=== PATIENT | male | born 1970 | race Caucasian/White ===

== ENCOUNTER 2020-09-09 02:57 | Outpatient (CLI) | payer BC, SELFPAY ==
[2020-09-09 12:28] LABS: HCT 40.4 % (40.0-50.0); HGB 13.1 g/dL (13.5-17.5); MCH 29.7 pg (27.0-33.0); MCHC 32.4 % (32.0-36.0); MCV 91.6 fL (80-95); MPV 9.7 fL (8.0-11.0); Platelet Count 303 10^3/uL (130-400); RBC 4.41 10^6/uL (4.36-5.78); RDW 12.8 % (11.8-14.1); WBC 5.77 10^3/uL (4.4-10.8)
[2020-09-09 13:18] LABS: Anion Gap 6.9 mmol/L (3-11); BUN 14 mg/dL (7-18); CO2 29.1 mmol/L (21.0-32.0); CREATININE 0.9 mg/dL (0.70-1.30); Calcium 8.7 mg/dL (8.5-10.1); Chloride 107 mmol/L (98-107); FREE T4 0.92 ng/dL (0.76-1.46); Glucose 109 mg/dL (74-106); Sodium 143 mmol/L (136-145); TSH 1.02 uIU/mL (0.36-3.74)
[2020-09-09 13:32] LABS: Calculated LDL 128 mg/dL (<100); Cholesterol 198 mg/dL (<200); HDL Cholesterol 56 mg/dL (40-60); Triglyceride 73 mg/dL (<150)
[2020-09-09 14:06] LABS: Hemoglobin A1C 5.9 % (<5.7)
[2020-09-12 13:55] LABS: Testosterone, Free 10.6 ng/dL (4.26-16.4); Testosterone, Total 391 ng/dL (240-950)
== END 2020-09-09 02:58 | disposition home or self-care (01) ==
LOC: LOS 02:58
PROVIDERS: PCP Nurse Practitioner Family; Visit Provider Nurse Practitioner Family
DX: I10 Essential (primary) hypertension (principal); R53.83 Other fatigue; R73.03 Prediabetes; E78.5 Hyperlipidemia, unspecified
CPT/HCPCS: 36415; 80048; 80061; 84402; 84403; 85027; 83036; 84439; 84443

== ENCOUNTER 2020-10-30 14:44 | Emergency (ER) | payer BC, SELFPAY ==
[2020-10-30] VITALS (30 sets, daily range): BP systolic 131–187; BP diastolic 73–160; PULSE 38–66; RESP 7–21; TEMP 36.7; O2SAT 96–100
--- NOTE | 2020-10-30 15:15 | RT.EKG_ITS ---
APPROVED REPORT Exam: Resting ECG Reason for Exam: chest pain Patient Location: E HR:46 bpm ECG Measurements Heart Rate 46 AXIS [place] 175 P 33 QRSd 102 QRS 16 QT 499 T 29 QTc 439 Conclusion Sinus bradycardia...rate< 60 ST elev, probable normal early repol pattern...ST elevation, age<55. Appears c/w benign early repol. No STEMI. No old EKG to compare. I have reviewed and interpreted ECG and agree with software generated interpretation.
--- NOTE | 2020-10-30 15:15 | DI.RAD_ITS ---
Exam(s) XR CHEST 2V PA LATERAL EXAM: XR CHEST 2V PA LATERAL CLINICAL HISTORY: chest apiin TECHNIQUE: 2D digital imaging was performed. COMPARISON: No exams were available for comparison FINDINGS: MEDIASTINUM: Normal. HEART: Normal. PULMONARY VASCULATURE: Normal. LUNGS: Clear. PLEURAL SPACE: No pleural effusion or pneumothorax. BONE:Normal. IMPRESSION: No acute pulmonary findings. DATA REPOSITORY: RADIATION DOSE DELIVERED:
[2020-10-30] MEDS: Aspirin 81 MG CHEW 324 MG CH (15:25)
[2020-10-30] MEDS: nitroGLYcerin 0.4 MG TAB SL (15:25)
--- NOTE | 2020-10-30 15:26 | ED.GENADUL_ITS ---
Discharge Plan Disposition Patient Disposition: HOME Condition: Stable Discharge Details Clinical Impression: Chest pain Primary Care Provider: S[facility] ED Provider: Carlotta Akhtar Home Meds and New Rx's Prescriptions: Continued cetirizine [Zyrtec] 10 mg tablet 10 mg PO DAILY RF: 0 garlic 1,000 mg capsule 1,000 mg PO QPC RF: 0 ascorbic acid (vitamin C) 1,000 mg tablet 1 g PO DAILY RF: 0 cholecalciferol (vitamin D3) 50 mcg (2,000 unit) capsule 50 mcg PO DAILY RF: 0 polyethylene glycol 3350 [Miralax] 17 gram/dose powder 17 g PO DAILY RF: 0 lisinopril 40 mg tablet 40 mg PO DAILY Qty: 90 RF: 4 Discharge Instructions Instructions: Chest Pain (ED) Additional Instructions: Please take a 81 mg chewable baby aspirin daily. An outpatient stress test was ordered they will call you to schedule that appointment. Follow up with primary care provider in 3-5 days. Return to ED sooner if any worsening nausea, chest tightness, dizziness, sweaty, or concerns. Increase oral fluids. Call and make an appointment with cardiology in the next 1 to 2 weeks. Referrals: Sapphire Florence NP [Primary Care Provider] - Sanjana Mcgee MD [ [facility] STAFF PHYSICIAN] - 2 weeks Frankie Barber MD [ CONSULTING PHYSICIAN] - 2 weeks Discharge Data Discharge Date/Time-TO BE ENTERED AT DEPARTURE: 10/30/20 18:50 Medical Decision Making <RAUL Pedroza - Last Filed: 10/31/20 19:48> Patient with heart score of 4, given aspirin, nitroglycerin did not alleviate patient's symptoms Blood pressure improved post Nitroglycerin administration, no change in pain patient may benefit from admission, will receive troponin at 2-hour heidi and admit patient agreeable care will be signed out to Carlotta Christensen at 1530 pending repeat troponin and EKG and chest x-ray Given EKG findings and heart score of 4, my recommendation would be for overnight admission Patient is noted to be bradycardic, patient states this is his baseline Differential Diagnosis Differential Diagnosis: Non-ST elevation VA, angina, hypertensive urgency, Medical Records Medical records reviewed: Yes I reviewed the patient's medical records. Lab Data Lab results reviewed: Yes I reviewed the patient's lab results. <Carlotta Akhtar - Last Filed: 10/30/20 19:52> Care assumed from provider (Olga CARTER) Discussed patient details and case and pending workup and disposition. Patient is hemodynamically stable, and alert and oriented. At this time pending repeat troponin and EKG at approximately 1730. Second troponin is within normal limits EKG is unchanged. I did discuss with patient and family at length regarding admission for observation and risks and benefits of being discharged home versus admission, at this time patient has declined admission and has opted to be discharged home with a outpatient stress test and cardiology referral. I did recommend patient take a daily chewable baby aspirin. I did discuss strict return instructions to return for any worsening chest tightness, diaphoresis, nausea, worsening dizziness or any concerns. Patient has a capacity to make medical decisions and family is aware and involved and they verbalized understanding. HPI <RAUL Pedroza - Last Filed: 10/31/20 19:48> General Mode of arrival: ambulatory . Date/Time Provider Initiated Documentation: 10/30/20 15:05 . Limitations to Documentation: no limitations . Information obtained by: patient . HPI Narrative: This 50-year-old male with history of prediabetes, hyperlipidemia, essential hypertension presents for chest pressure that started approximately 12:00 today. He denies any shortness of breath, diaphoresis, nausea. He states he checked his blood pressure because of the chest pressure and noted it was elevated over 170. States he called his doctor who instructed him to come to the emergency room. He states he had chest pressure before but not checked his blood pressure with it. He states he was at rest when the pain began. He denies any known exertional component. He denies any current shortness of breath. She denies any pleuritic chest pain, calf pain or swelling, recent flights, surgeries, long drives. He denies any history of asthma or COPD. He denies known history of early cardiac events in family members. He has not attempted any [id number] medication. He has been taking his medications as prescribed. He did not have a stress test in the past. He denies any illicit drug use. He describes the pain is pressure sensation . Related Data Home Medications Medication Instructions Recorded Confirmed ascorbic acid (vitamin C) 1,000 mg 1 g PO DAILY tab 03/20/20 10/30/20 tablet cetirizine 10 mg tablet 10 mg PO DAILY 03/20/20 10/30/20 cholecalciferol (vitamin D3) 50 50 mcg PO DAILY 03/20/20 10/30/20 mcg (2,000 unit) capsule garlic 1,000 mg capsule 1,000 mg PO QPC 03/20/20 10/30/20 lisinopril 40 mg tablet 40 mg PO DAILY #90 tab 03/20/20 10/30/20 polyethylene glycol 3350 17 17 g PO DAILY 03/20/20 10/30/20 gram/dose oral powder Previous Rx's Medication Instructions Recorded lisinopril 40 mg tablet 40 mg PO DAILY #90 tab 03/20/20 Allergies Allergy/AdvReac Type Severity Reaction Status Date / Time No Known Allergies Allergy Verified 10/30/20 14:52 General Stated Complaint: GenMedical ELIZABETH: 4 Review of Systems <RAUL Pedroza - Last Filed: 10/31/20 19:48> Narrative: Review of systems obtained x7 aside from where indicated in HPI PFSH <RAUL Pedroza - Last Filed: 10/31/20 19:48> Medical History Essential hypertension Hyperlipidemia Irritable bowel syndrome Obesity Prediabetes Surgical History H/O vasectomy Hx of hemorrhoidectomy S/P lumbar discectomy (~2004) Family History Mother , at 60 from COPD Depression COPD (chronic obstructive pulmonary disease) Father , at 52 from airplane crash No problems noted. Sister Diabetes Son No problems noted. Maternal Grandfather , 60's No problems noted. Maternal Grandmother , in her 70s Dementia Paternal Grandfather , at 67 from brain cancer Brain cancer Paternal Grandmother , 70's Heart disease Myocardial infarction Dementia Social History Smoking/Tobacco Use Status: Never Second Hand Exposure: Yes Smoking risk assessment performed?: Yes Alcohol Intake: current Alcohol Intake frequency: a few times a week Alcohol type: beer, wine and hard liquor Drug use: Daily Substance use type: marijuana Caregiver/Support person: No Household members: spouse, children and friend(s) Housing: house Communication Needs: None Do you need help understanding health information?: Never Pets and animals: Yes Pets and animals: cat(s), dog(s) and farm animals Sexually active: Yes Do you think of yourself as: straight/heterosexual Current gender identity: male What is your relationship status?: How often do you talk on the phone with friends or family?: never How often do you get together with friends or relatives?: never Do you belong to any clubs or organized social groups?: no Panel score (0-1 are the most socially isolated patients): 1 What type of physical activity do you participate in: walking and weight lifting Duration: 30-45 minutes/day Frequency: 3-4 times per week Geetha/Pentecostalism: None Special geetha needs: No Water heater temp set <120 deg: Yes Working smoke detector in home: No Fire extinguisher in home: No Do you feel safe at home: Yes Do you feel safe in your relationship?: Yes Exam <RAUL Pedroza - Last Filed: 10/31/20 19:48> Const General: no acute distress Eyes Pupils: PERRL Chest Breast inspection: normal inspection of the breasts Resp Effort & Inspection: normal respiratory effort Auscultation: clear to auscultation bilaterally Cardio Rate: bradycardic Rhythm: regular rhythm GI Other: No abdominal bruit or pulsatile mass Skin General skin exam: no rashes or lesions noted Neuro General: patient alert and patient oriented x3 Extrem Other: Distal pulses intact all 4 extremities, no calf swelling or tenderness appreciated on exam Course <RAUL Pedroza - Last Filed: 10/31/20 19:48> Vital Signs Vital signs: Vital Signs Temperature 36.7 C 10/30/20 14:49 Pulse 55 L 10/30/20 14:49 Respiratory Rate 14 10/30/20 14:49 Blood Pressure 177/89 H 10/30/20 14:49 Pulse Oximetry 99 10/30/20 14:49 Temperature 36.7 C 10/30/20 14:49 Temperature Source Skin 10/30/20 14:49 Pulse 55 L 10/30/20 14:49 Respiratory Rate 14 10/30/20 14:49 Respiratory Effort Non-Labored 10/30/20 14:55 Respiratory Depth Normal 10/30/20 14:55 Respiratory Pattern Normal 10/30/20 14:55 Blood Pressure 177/89 H 10/30/20 14:49 Blood Pressure Position Supine 10/30/20 14:49 Pulse Oximetry 99 10/30/20 14:49 Oxygen Delivery Method Room Air 10/30/20 14:49 Oxygen Flow Rate 0 10/30/20 14:49 Pain Level 0 10/30/20 14:49 Sign Out <RAUL Pedroza - Last Filed: 10/31/20 19:48> Sign Out Data: Sign Out Comment: pending possible admission, repeat troponin, ekg at 1730 Last updated by Olga Avila PA at 10/30/20 17:01
[2020-10-30 15:42] LABS: Abs Immature Grans 0.01 10^3/uL (0.0-0.06); Absolute Basophil Count 0.05 10^3/uL (0.0-0.2); Absolute Eosinophil Count 0.12 10^3/uL (0.0-0.7); Absolute Lymphocyte Count 1.71 10^3/uL (1.2-3.4); Absolute Monocyte Count 0.43 10^3/uL (0.1-0.8); Absolute Neutrophil Count 5.21 10^3/uL (1.2-6.7); Basophils % 0.7; Eosinophils % 1.6; HGB 13.7 g/dL (13.5-17.5); Immature Grans % 0.1; Lymphocytes % 22.7; MCHC 32.6 % (32.0-36.0); MPV 9.3 fL (8.0-11.0); Monocytes % 5.7; Neutrophils % 69.2; Nucleated RBC 0 %; Platelet Count 298 10^3/uL (130-400); RBC 4.72 10^6/uL (4.36-5.78); RDW 13.3 % (11.8-14.1); RDW-SD 43.5 fL; WBC 7.53 10^3/uL (4.4-10.8)
[2020-10-30 15:55] LABS: ALT 36 U/L (16-63); AST 16 U/L (15-37); Albumin 4.2 g/dL (3.4-5.0); Alkaline Phosphatase 103 U/L (46-116); Anion Gap 10.7 mmol/L (3-11); BUN 9 mg/dL (7-18); Bilirubin, Total 0.7 mg/dL (0.2-1.0); CO2 27.3 mmol/L (21.0-32.0); CREATININE 0.9 mg/dL (0.70-1.30); Chloride 106 mmol/L (98-107); Glucose 91 mg/dL (74-106); Potassium 3.8 mmol/L (3.5-5.1); Sodium 144 mmol/L (136-145); Troponin I < 0.05 ng/mL (<0.06)
--- NOTE | 2020-10-30 16:30 | RT.EKG_ITS ---
APPROVED REPORT Exam: Resting ECG Reason for Exam: chest pain Patient Location: E HR:46 bpm ECG Measurements Heart Rate 46 AXIS [place] 172 P 27 QRSd 102 QRS 14 QT 514 T 27 QTc 447 Conclusion Bradycardia with irregular rate...V-rate 41- 53, mean < 60 ST elev, probable normal early repol pattern...ST elevation, age<55. Appears c/w benign early repol. T wave inversion in lead III slighly more pronounced than previous. I have reviewed and interpreted ECG and agree with software generated interpretation. No STEMI.
--- NOTE | 2020-10-30 17:15 | DI.VRAD_ITS ---
PROCEDURE INFORMATION: Exam: XR Chest Exam date and time: 10/30/2020 3:24 PM Age: 50 years old Clinical indication: Other: Chest pain; Additional info: Chest pain, high blood pressure TECHNIQUE: Imaging protocol: XR of the chest. Views: 2 views. COMPARISON: No relevant prior studies available. FINDINGS: Lungs: Unremarkable. No consolidation. Pleural spaces: Unremarkable. No pleural effusion. No pneumothorax. Heart/Mediastinum: Unremarkable. No cardiomegaly. Bones/joints: Unremarkable. IMPRESSION: No evidence for acute abnormality. Dictated and Authenticated by: Trini Townsend MD. Ordering:LANI Espinoza MD
--- NOTE | 2020-10-30 17:30 | RT.EKG_ITS ---
APPROVED REPORT Exam: Resting ECG Reason for Exam: high blood pressure Patient Location: E HR:42 bpm ECG Measurements Heart Rate 42 AXIS [place] 172 P 28 QRSd 103 QRS 8 QT 534 T 21 QTc 447 Conclusion Sinus bradycardia...rate< 60 ST elev, probable normal early repol pattern...ST elevation, age<55. No change in T wave inversion in III. Appears most likely early repol. No STEMI. I have reviewed and interpreted ECG and agree with software generated interpretation.
[2020-10-30 18:15] LABS: Troponin I < 0.05 ng/mL (<0.06)
--- NOTE | 2020-10-30 18:46 | NUR.NOTE ---
Nursing Note: Referral faxed to DI for a regular exercise stress test. Referral faxed to PCP [facility] for follow up in 3 to 5 days for chest pain. Referral faxed to [facility] for follow up within 1 week for chest pain. Ana Paula Santizo
== END 2020-10-30 18:50 | disposition home or self-care (01) ==
PROVIDERS: Physician Assistant; Emergency Provider Registered Nurse Emergency; PCP Nurse Practitioner Family
DX: R07.89 Other chest pain (principal); I10 Essential (primary) hypertension
CPT/HCPCS: 36415; 80053; 93005; 99285; 71046; 84484; 85025; 93010

== ENCOUNTER 2020-11-12 01:29 | Outpatient (CLI) | payer BC, SELFPAY ==
--- NOTE | 2020-11-10 08:34 | NUR.NOTE ---
Nursing Note: Pt arrived to diagnositic imaging for regular stress test. Resting supine BP 188/120, pt asymptomatic. Repeat BP supine 170/108. Unable to safely complete stress test with elevated resting BPs. Pt states he changed his normal evening routine last night and slept for only 2 hrs. Pt rescheduled for regular stress test 11/12. Encouraged pt to continue normal regimen for sleep, take medications as normal, and reviewed precautions. Pt voices understanding.
--- NOTE | 2020-11-12 09:00 | ETT_ITS ---
APPROVED REPORT Exam: Exercise Treadmill Patient Location: Out-Patient Room/Bed: Stress Nurse: Caro eHster RN Ordering Provider:KAIDEN AMAYA, Contact Number: [phone] BMI: 32.77 Baseline Rhythm: Sinus Rhythm Comment: Diffuse ST elevation leads I, aVL, V2, V3 Indications: Chest pain Medical History Medical History: Hypertension, hyperlipidemia, obesity, prediabetes Cardiac Medications: Lisinopril, garlic Allergies: NKA Cardiac Risk Factors: Hypertension, hyperlipidemia, obesity, prediabetes, family hx, exposure to 2nd hand smoke Previous Cardiac Procedures: None Pretest Chest Pain Characteristics: None Exercise History: Sedentary Physical Disabilities: None Lung Sounds: Clear to auscultation Heart Sounds: Regular Stress Test Details Test: Exercise stress testing was performed using a Sae protocol. Rest Stress HR Resting HR Supine: 63 bpm Max Heart Rate (APMHR): 171 bpm Resting HR Standin bpm Target HR (85% APMHR): 145 bpm Max HR Achieved: 164 bpm % of APMHR: 95 Recovery HR: 88 bpm HR response to stress: Normal HR response to stress BP Resting BP Supine: 166/90 mmHg Resting BP Standin/90 mmHg Max BP: 200/78 mmHg Recovery BP: 158/86 mmHg BP response to stress: Abnormal hypertensive response to stress. ECG Resting ECG: Sinus Rhythm Ectopy: None Comment: Minimal RACHEL in lateral leads Stress ECG: Sinus Tachycardia ST Change: No significant ST segment changes noted Arrhythmia: Frequent PVCs, couplets Comment: Increased ectopy toward end of exercise Recovery ECG: Sinus Rhythm Recovery ST Change: No significant ST segment changes noted Recovery Arrhythmia: Rare PVC, couplet Clinical Reason for Termination: General fatigue Stress Symptoms: General fatigue, chest tightness Exercise duration: 11 min58 sec Highest Stage Reached: Stage 4: 4.2 mph at 16% grade. Exercise capacity: 13.48 METs [place] Treadmill Score: 7 Rate Pressure Product: [id number] Stress ECG Conclusion 1. The patient exercised for 11 minutes and 58 seconds (13.5 METS). Exercise was stopped due to fati danilo. 2. The patient's blood pressure and heart rate augmented appropriately. 3. The patient had no EKG evidence of ischemia. He did develop frequent PVCs towards the end of exer cise and during recovery. [place] Treadmill Score is 7 which is Low risk.
== END 2020-11-12 01:49 ==
PROVIDERS: PCP Nurse Practitioner Family; Visit Provider Student in an Organized Health Care Education/Training Program
DX: R07.9 Chest pain, unspecified (principal); I10 Essential (primary) hypertension; E78.5 Hyperlipidemia, unspecified; E66.09 Other obesity due to excess calories; R73.03 Prediabetes; Z82.49 Family history of ischemic heart disease and other diseases of the circulatory system; Z77.22 Contact with and (suspected) exposure to environmental tobacco smoke (acute) (chronic)
CPT/HCPCS: 93017

== ENCOUNTER 2020-11-20 11:37 | Outpatient (RCR) | payer BC, SELFPAY ==
--- NOTE | 2020-11-20 11:30 | HOLTER_ITS ---
APPROVED REPORT Conclusion There is a 48-hour monitor ordered for indication of arrhythmia. Patient was in normal sinus rhythm with majority the recording with an average heart rate of 78 bpm. The patient had no episodes of ventricular tachycardia nor any episodes of supraventricular tachycard ia. There were 9 total premature beats. There were no episodes of atrial fibrillation, no pauses greater than 3 seconds and no evidence of hi gh degree heart block. There was 1 patient triggered event associated with 12 minutes of dizziness. There were no arrhythmi as recorded during this time.
== END 2020-11-28 23:59 | disposition home or self-care (01) ==
LOC: RT 11:37
PROVIDERS: PCP Nurse Practitioner Family; Visit Provider Internal Medicine Cardiovascular Disease
DX: I49.8 Other specified cardiac arrhythmias (principal)
CPT/HCPCS: 93225; 93226

== ENCOUNTER 2021-08-13 02:19 | Outpatient (CLI) | payer BC, SELFPAY ==
[2021-08-13 15:32] LABS: Abs Immature Grans 0.01 10^3/uL (0.0-0.06); Absolute Basophil Count 0.06 10^3/uL (0.0-0.2); Absolute Eosinophil Count 0.13 10^3/uL (0.0-0.7); Absolute Lymphocyte Count 1.78 10^3/uL (1.2-3.4); Absolute Monocyte Count 0.36 10^3/uL (0.1-0.8); Absolute Neutrophil Count 4.38 10^3/uL (1.2-6.7); Basophils % 0.9; Eosinophils % 1.9; HCT 40.8 % (40.0-50.0); HGB 13.4 g/dL (13.5-17.5); Immature Grans % 0.1; Lymphocytes % 26.5; MCH 29.8 pg (27.0-33.0); MCHC 32.8 % (32.0-36.0); MCV 90.7 fL (80-95); MPV 9.5 fL (8.0-11.0); Monocytes % 5.4; Neutrophils % 65.2; Platelet Count 296 10^3/uL (130-400); RDW 13.1 % (11.8-14.1); RDW-SD 43.2 fL; WBC 6.72 10^3/uL (4.4-10.8)
[2021-08-13 16:16] LABS: ALT 25 U/L (16-63); AST 18 U/L (15-37); Albumin 4.3 g/dL (3.4-5.0); Alkaline Phosphatase 77 U/L (46-116); Anion Gap 7.2 mmol/L (3-11); BUN 14 mg/dL (7-18); Bilirubin, Total 0.5 mg/dL (0.2-1.0); CO2 30.8 mmol/L (21.0-32.0); Chloride 103 mmol/L (98-107); Glucose 118 mg/dL (74-106); Potassium 3.7 mmol/L (3.5-5.1); Sodium 141 mmol/L (136-145); Total Protein 7.4 g/dL (6.4-8.2)
[2021-08-16 09:41] LABS: PSA, Screening 0.5 ng/mL (<=3.5)
== END 2021-08-13 02:20 | disposition home or self-care (01) ==
LOC: LBO 02:19
PROVIDERS: PCP Nurse Practitioner Family; Visit Provider Nurse Practitioner Family
DX: R63.4 Abnormal weight loss (principal); Z12.5 Encounter for screening for malignant neoplasm of prostate
CPT/HCPCS: 36415; 80053; 84153; 85025

== ENCOUNTER 2021-09-22 12:44 | Outpatient (CLI) | payer BC, SELFPAY ==
[2021-09-22 12:47] LABS: HCT 38.6 % (40.0-50.0); HGB 12.4 g/dL (13.5-17.5); MCH 29.4 pg (27.0-33.0); MCHC 32.1 % (32.0-36.0); MCV 92 fL (80-95); MPV 9.2 fL (8.0-11.0); Platelet Count 269 10^3/uL (130-400); RBC 4.22 10^6/uL (4.36-5.78); RDW 13.3 % (11.8-14.1); RDW-SD 45.1 fL; WBC 5.57 10^3/uL (4.4-10.8)
[2021-09-22 13:01] LABS: ALT 27 U/L (16-63); AST 16 U/L (15-37); Alkaline Phosphatase 88 U/L (46-116); Anion Gap 6.1 mmol/L (3-11); BUN 10 mg/dL (7-18); Bilirubin, Total 0.6 mg/dL (0.2-1.0); CO2 29.9 mmol/L (21.0-32.0); CREATININE 0.8 mg/dL (0.70-1.30); Calcium 8.9 mg/dL (8.5-10.1); Chloride 105 mmol/L (98-107); Glucose 103 mg/dL (74-106); Potassium 3.6 mmol/L (3.5-5.1); Sodium 141 mmol/L (136-145); Total Protein 7.5 g/dL (6.4-8.2)
== END 2021-09-22 12:45 | disposition home or self-care (01) ==
PROVIDERS: PCP Nurse Practitioner Family; Visit Provider Nurse Practitioner Family
DX: E86.0 Dehydration (principal); R63.4 Abnormal weight loss
CPT/HCPCS: 36415; 80053; 85027

== ENCOUNTER 2021-11-12 08:57 | Day surgery (SDC) | payer BC, SELFPAY ==
--- NOTE | 2021-11-11 18:43 | COLE_ITS ---
Colonoscopy Report Date of procedure: 11/12/21 Pre-op diagnosis general: CRC screening Post-op diagnosis procedure note: other (Polyp and right-sided diverticula) Surgeon: Monique Maravilla Anesthesia Type: General:No Airway Complications: None Disposition: same day Prep: Miralax/Dulcolax Retraction Time: 15 Procedure Description: After informed consent was obtained the patient was taken to the procedure room and placed in a left decubitous position. Monitors were applied and a time out was done. The patients name, date of , procedure, allergies to medications and metal in their body was reviewed. The patient was then sedated. Once sedated and comfortable a rectal exam was done. External exam was normal. In ternal exam revealed a normal sphincter tone and no palpable masses. The scope was then introduced and retrofelexed. Patient had a previous stapled hemorrhoidectomy. Postsurgical changes noted. No internal hemorrhoids were identified. The scope was then advanced to the cecum without difficulty. The TI and appendiceal orifice were identified. The prep was BB PS 3 in all segments for total of 9. The scope was then slowly retracted over 15 minutes back into the rectum. 0.75 cm polyps were removed at 35 cm with a cold snare. All specimen is retrieved and no bleeding is noted. He does have right-sided diverticula and a few small scattered sigmoid diverticula. There is no signs of active bleeding or infection the scope was removed and the patient was woken up and taken back to Same day surgery in stable condition. The patient tolerated the procedure well and there were no immediate complications. Follow up: The patient should follow up in ~ 7 years unless they develop changes in bowel habits or other new gastrointestinal complaints.
--- NOTE | 2021-11-11 18:45 | PDOC.DSDIS_ITS ---
Discharge Plan Disposition Patient Disposition: HOME Condition: Good Discharge Details Reason For Visit: colon scope Attending Provider: Monique Maravilla Primary Care Provider: Calin Cummings Home Meds and New Rx's Prescriptions: Continued garlic 1,000 mg capsule 1,000 mg PO QPC cholecalciferol (vitamin D3) 50 mcg (2,000 unit) capsule 50 mcg PO DAILY polyethylene glycol 3350 [Miralax] 17 gram/dose powder 17 g PO DAILY lisinopril 40 mg tablet 40 mg PO .nightly Qty: 90 4RF hydrochlorothiazide 12.5 mg tablet 12.5 mg PO DAILY Qty: 90 3RF aspirin 81 mg tablet,chewable 81 mg PO DAILY Discontinued bisacodyl [Dulcolax (bisacodyl)] 5 mg tablet,delayed release (DR/EC) 5 mg PO ONCE Qty: 4 0RF Rx Instructions: Take according to provider's instructions for colonoscopy prep. polyethylene glycol 3350 17 gram/dose powder 17 g PO ONCE Qty: 238 0RF Rx Instructions: To be taken as directed by prescriber's office for colonoscopy prep. Discharge Instructions Additional Instructions: DSU Colonoscopy Post- Op Instructions Instructions for Everyone who is given Anesthesia: For your safety, please do the following for the next twenty-four (24) hours: *Do Not operate a motor vehicle (car, truck, motorcycle, etc.) *Do Not drink alcoholic beverages or use any recreational drugs for the first 24 hours or while taking pain medications. The medications in your body may have a reaction that can be dangerous. *Do Not make any important decisions or sign any important papers. Findings: small polyp right sided diverticula Follow up: My office will send a letter in 2 to 3 weeks time detailing as to what type of polyp it was and when we want you to repeat the colonoscopy, probably 7 years time. 1. No lifting over 20 pounds or strenuous activity for the first 24 hours after your procedure. After 24 hours there are no restrictions on your activity but you may feel fatigued for a few days. 2. After you arrive home you may have a light meal and return to your normal diet as you can tolerate it without feeling sick to your stomach. 3. You may have a bloated, gaseous feeling in your belly (abdomen) after a colonoscopy. Passing gas and belching will help. Walking or lying down on your left side with your knees flexed may relieve the discomfort. Call the office at [phone] (Office) or [phone] (Hospital) right away if you notice any of the following: a.Vomiting of blood or ?coffee ground stools?. b.Rectal bleeding 1Tbsp, blood clots or continuous bleeding. c.Severe belly (abdominal) pain. d.A hard distended belly (abdomen) and an inability to pass gas. 4. Please don?t expect to have a normal BM (bowel movement) for 2-3 days after your procedure. 5. If there are questions regarding the findings of your procedure, please contact your doctor 6. If you are unable to contact your doctor with a problem, contact the hospital at [phone]. 7. Continue all your regular medications unless directed otherwise. I understand the above instructions and have no questions. Signature of Patient or Adult Escort Name of Responsible Adult Escort Signature of Nurse Date/Time Activity:: See above Diet:: See above Discharge Orders Discharge Orders: Discharge Order (Routine); Ordered 11/11/21 Ordered By: Monique Maravilla DS: Diagnosis Discharge Diagnosis (1) Diverticula of colon: Status: Acute (2) Adenomatous colon polyp: Status: Acute
[2021-11-12 09:16] VITALS: BP 119/77; PULSE 63; RESP 16; TEMP 36.5; O2SAT 100
[2021-11-12] MEDS: Lactated Ringers 1,000 ML 80 ML IV (09:29)
--- NOTE | 2021-11-12 10:22 | W.ANESPRE ---
General Info Date of Service Date Performed: 11/12/21 Height: 5 ft 11 in Weight: 88.224 kg Body Mass Index (BMI): 27.1 Surgical Procedure: Operation Date: 11/12/21 09:50 Proposed Procedure Side Surgeon toma Maravilla, DO Meds Allergies and Home Medications Allergies Allergy/AdvReac Type Severity Reaction Status Date / Time No Known Allergies Allergy Verified 11/11/21 13:58 Home Medication Medication Instructions Recorded cholecalciferol (vitamin D3) 50 50 mcg PO DAILY 03/20/20 mcg (2,000 unit) capsule garlic 1,000 mg capsule 1,000 mg PO QPC 03/20/20 polyethylene glycol 3350 17 17 g PO DAILY 03/20/20 gram/dose oral powder (Miralax) aspirin 81 mg chewable tablet 81 mg PO DAILY 11/05/20 hydrochlorothiazide 12.5 mg tablet 12.5 mg PO DAILY #90 tabs 11/20/20 lisinopril 40 mg tablet 40 mg PO .nightly #90 tabs 11/20/20 bisacodyl 5 mg tablet,delayed 5 mg PO ONCE #4 tabs 10/28/21 release (Dulcolax (bisacodyl)) polyethylene glycol 3350 17 17 g PO ONCE #238 grams 10/28/21 gram/dose oral powder Current Visit Medications: Current Medications Generic Name Dose Route Start Last Admin Trade Name Freq PRN Reason Stop Dose Admin Hyoscyamine Sulfate 0.125 mg 11/11/21 18:43 Hyoscyamine 0.125 Mg Sl/Oral/Chew SL DIRECTED PRN Ringer's Solution 1,000 mls @ 80 mls/hr 11/12/21 06:00 11/12/21 09:29 IV 12/11/21 23:59 80 mls/hr INFUSION XOCHITL Administration IV Miscellaneous Supplies 1 each 11/12/21 06:00 Iv Access IV 12/11/21 23:59 DIRECTED XOCHITL Ondansetron HCl 4 mg 11/11/21 18:43 Ondansetron 4 Mg/2 Ml Vial IVP Q4H PRN PRN Nausea / Vomiting Sodium Chloride 0 ml 11/12/21 06:00 Normal Saline Flush 10 Ml Syr IV 12/11/21 23:59 PRN PRN Sodium Chloride 0 ml 11/12/21 06:00 Normal Saline 10 Ml Vial IJ 12/11/21 23:59 DIRECTED PRN Sterile Water 0 ml 11/12/21 06:00 Water,Injection,Sterile 10 Ml Vial IJ 12/11/21 23:59 DIRECTED PRN PFSH Active Problems Active Problems: Problem Status Onset Code Unintentional weight loss R63.4 Screening for colon cancer Z12.11 Medical History Medical History Essential hypertension Hyperlipidemia Impairment of speech discrimination Irritable bowel syndrome Prediabetes Sensorineural hearing loss, unilateral, right ear, with unrestricted hearing on the contralateral side Surgical History Surgical History (Updated 11/12/21 @ 09:15 by Arlette De Paz RN) H/O vasectomy History of colonoscopy Hx of hemorrhoidectomy S/P lumbar discectomy (~2004) Tobacco Smoking/Tobacco Use Status: Never Passive smoking exposure: Yes Second hand exposure: Yes Alcohol Alcohol Intake: current Alcohol intake frequency: a few times a month Alcohol type: beer, wine and hard liquor Substance Use Substance use: Occasionally Substance use type: marijuana Vital Signs and Lab Results Vital Signs Most Recent Vital Signs in EMR: Most Recent Vital Signs Temp Pulse Resp BP Pulse Ox 36.5 C 63 16 119/77 100 11/12/21 09:16 11/12/21 09:16 11/12/21 09:16 11/12/21 09:16 11/12/21 09:16 Lab Results Blood Type / Crossmatch: No Data to Display Complete Blood Count: No Data to Display Complete Metabolic Panel: No Data to Display Liver Function Panel: No Data to Display Coagulation Panel: No Data to Display Cardiac Panel: No Data to Display Arterial Blood Gas: No Data to Display Venous Blood Gas: No Data to Display Pancreas Panel: No Data to Display Thyroid Panel: No Data to Display Infectious Disease: No Data to Display Blood Cultures: No Data to Display Toxicology Panel: No Data to Display Imaging and Studies Imaging and Studies Study information below may be from another EMR and interpreted by another provider. Please see original notes in EMR for more complete details. EKG Summary: Conclusion Sinus bradycardia...rate< 60 ST elev, probable normal early repol pattern...ST elevation, age<55. No change in T wave inversion in III. Appears most likely early repol. No STEMI. 10/30/20 Stress Test Summary: Stress ECG Conclusion 1. The patient exercised for 11 minutes and 58 seconds (13.5 METS). Exercise was stopped due to fatigue. 2. The patient's blood pressure and heart rate augmented appropriately. 3. The patient had no EKG evidence of ischemia. He did develop frequent PVCs towards the end of exercise and during recovery. Aguillon Treadmill Score is 7 which is Low risk. 11/12/20 Anesthesia Assessment and Plan Anesthesia History Personal History: No History of Anesthesia Complications Family History: No Family History of Anesthesia Complications Exercise Tolerance Exercise Tolerance: Metabolic Equivalents>4 Pertinent Negatives Pertinent Negatives: No Major Cardiovascular Symptoms or Complaints, No Major Pulmonary Symptoms or Complaints and No History of CVA/TIA Cardiac & Pulmonary Exam Cardiac Exam: Normal S1/S2 Heart Sounds Pulmonary Exam: Clear Bilateral Breath Sounds Implantable Cardiac Device Does patient have a Pacemaker or an ICD?: No Airway Exam Known Difficult Airway: No Mallampati Class: 1 Mouth Opening: Normal (> 3cm) Thyromental Distance: Greater than 3 cm Neck Range of Motion: Full ROM Neck Circumference: Normal Teeth Condition: Normal Dentition ASA Classification ASA Score: ASA 2 Emergency Case?: No NPO Status NPO Status: NPO Clears >2 hours, Solids >8 hours Anesthesia Plan Resuscitation Status: Full Code Anesthesia Technique: General Anesthesia Airway Planned: Natural Airway Monitors Used: Standard Monitors
[2021-11-12 10:47] VITALS: BMI 27.1
--- NOTE | 2021-11-12 11:15 | BOWEL_PTH ---
PATIENT: Brennan Mendoza LOC: [facility] U#:[id number] AGE/SX: 51/M ROOM: RE11/12/[address]: Monique Maravilla : 1970 BED: DIS: 11/12/2021 SPEC #: [id number] RECD: 11/12/21 12:48 STATUS: ALESSANDRA REQ #: [id number] SHANNAN: 11/12/21 11:[address]: Monique Maravilla DEPT: Surgical Specimen RECD BY: Olga Arceo ENTERED: 11/12/21 12:49 SP TYPE: Bowel OTHR DR: Calin Cummings, LILIANA Tissues: 1 - BIOPSY BOWEL Procedures: GROSS AND MICRO LEVEL 4 Comments: [id number]
[2021-11-12 11:56] VITALS: BP 115/78; PULSE 62; RESP 16; TEMP 36.5; O2SAT 99
[2021-11-12 12:19] VITALS: BP 113/81; PULSE 55; RESP 18; TEMP 36.5; O2SAT 100
--- NOTE | 2021-11-12 12:29 | W.ANESPOSTOP ---
Postoperative Evaluation Date, Time and Location Date Performed: 11/12/21 Time Performed: 12:19 Patient Location: Day Surgery Unit Vital Signs Most Recent Imported Vital Signs: Most Recent Vital Signs Temp Pulse Resp BP Pulse Ox 36.5 C 55 L 18 113/81 100 11/12/21 12:19 11/12/21 12:19 11/12/21 12:19 11/12/21 12:19 11/12/21 12:19 Pain Score Most Recent Pain Score: Most Recent Pain Score Pain Level 0 11/12/21 12:19 Assessment Mental Status: Awake (Alert & Oriented to Patient Baseline) Airway and Respiratory Function: Patent airway with normal (patient baseline) respiratory exam Cardiovascular Function: Hemodynamically Stable Hydration Status: Adequately Hydrated Nausea & Vomiting: No Nausea or Vomiting Pain: Pt. Denies Any Pain Peripheral Nerve Block: Patient did not receive a nerve block
== END 2021-11-12 12:44 | disposition home or self-care (01) ==
PROVIDERS: PCP Nurse Practitioner Family; Visit Provider Surgery
PROC: 0DJD8ZZ Inspection of Lower Intestinal Tract, Via Natural or Artificial Opening Endoscopic (ICD-10-PCS; CPT 45378; principal; 2021-11-12 09:45)
DX: Z12.11 Encounter for screening for malignant neoplasm of colon (principal); K63.5 Polyp of colon; K57.30 Diverticulosis of large intestine without perforation or abscess without bleeding; K63.89 Other specified diseases of intestine
CPT/HCPCS: 45385; 88305; J2704

== ENCOUNTER 2022-02-28 18:55 | Outpatient (CLI) | payer BC, SELFPAY ==
[2022-02-28 17:16] LABS: CREATININE 0.8 mg/dL (0.70-1.30); Estimated GFR 107.15 (mL/min/1.73m2)
== END 2022-02-28 18:56 | disposition home or self-care (01) ==
LOC: LBO 18:57
PROVIDERS: PCP Student in an Organized Health Care Education/Training Program; Visit Provider Otolaryngology
DX: R42 Dizziness and giddiness (principal); H90.41 Sensorineural hearing loss, unilateral, right ear, with unrestricted hearing on the contralateral side; Z01.812 Encounter for preprocedural laboratory examination
CPT/HCPCS: 36415; 82565

== ENCOUNTER → 2022-03-16 02:21 | Outpatient (CLI) | payer BC, SELFPAY ==
--- NOTE | 2022-03-16 07:30 | DI.MRI_ITS ---
Exam(s) MR IAC BRAIN WO/W EXAM: MR IAC BRAIN WO/W CLINICAL HISTORY: new onset dizziness with hx of R SNHL,H90.41,R42. TECHNIQUE: Multiplanar multisequence MRI of the brain and internal auditory canals was performed. CONTRAST MATERIAL: IV Contrast: mL of Magnevist contrast administered. COMPARISON: No exams were available for comparison FINDINGS: VENTRICLES AND EXTRA AXIAL SPACES: Normal in size and morphology for the patient's age. HEMORRHAGE: None. CEREBRAL PARENCHYMA: No focus of restricted diffusion to suggest acute infarct. No space-occupying le rajiv identified. MIDLINE SHIFT: None. BRAINSTEM/CEREBELLUM: Normal. CALVARIUM: Normal. ENHANCEMENT: No suspicious enhancement identified. VISUALIZED PARANASAL SINUSES/MASTOIDS: Mucous retention left maxillary sinus. IAC/CP ANGLE: The internal auditory canals are within normal limits. The cerebellar pontine angles ar e unremarkable. No enhancing lesions are seen. Visualized portion of the 7th and 8th nerves appear no rmal. OTHER FINDINGS: None. IMPRESSION: Unremarkable MRI of the brain and internal auditory canals. DATA REPOSITORY:
[2022-03-16] MEDS: Normal Saline - Diluent 50 ML VIAL 25 ML IJ (13:52)
[2022-03-16] MEDS: Gadoterate meglumine 20 ML VIAL 19 ML IVP (13:53)
== END ==
PROVIDERS: PCP Student in an Organized Health Care Education/Training Program; Visit Provider Otolaryngology
DX: H90.41 Sensorineural hearing loss, unilateral, right ear, with unrestricted hearing on the contralateral side (principal); R42 Dizziness and giddiness
CPT/HCPCS: 70553

== ENCOUNTER 2022-04-19 02:11 | Outpatient (CLI) | payer BC, SELFPAY ==
[2022-04-19 12:35] LABS: Abs Immature Grans 0.02 10^3/uL (0.0-0.06); Absolute Basophil Count 0.07 10^3/uL (0.0-0.2); Absolute Eosinophil Count 0.19 10^3/uL (0.0-0.7); Absolute Monocyte Count 0.33 10^3/uL (0.1-0.8); Absolute Neutrophil Count 1.96 10^3/uL (1.2-6.7); Basophils % 1.6; Eosinophils % 4.3; HCT 42.1 % (40.0-50.0); HGB 13.7 g/dL (13.5-17.5); Immature Grans % 0.4; Lymphocytes % 42.5; MCH 29.3 pg (27.0-33.0); MCHC 32.5 % (32.0-36.0); MCV 90 fL (80-95); MPV 9.3 fL (8.0-11.0); Monocytes % 7.4; Neutrophils % 43.8; Platelet Count 288 10^3/uL (130-400); RBC 4.68 10^6/uL (4.36-5.78); WBC 4.47 10^3/uL (4.4-10.8)
[2022-04-19 12:53] LABS: Iron 133 ug/dL (65-175); Total Iron Binding Capacity 283 ug/dL (250-450); Transferrin Sat 47 % (20-55)
[2022-04-19 13:12] LABS: ALT 22 U/L (16-63); AST 28 U/L (15-37); Albumin 4.1 g/dL (3.4-5.0); Alkaline Phosphatase 65 U/L (46-116); Anion Gap 3.5 mmol/L (3-11); BUN 13 mg/dL (7-18); Bilirubin, Total 0.6 mg/dL (0.2-1.0); CO2 32.5 mmol/L (21.0-32.0); CREATININE 0.8 mg/dL (0.70-1.30); Chloride 104 mmol/L (98-107); Estimated GFR 107.15 (mL/min/1.73m2); Ferritin 160 ng/mL (26-388); Glucose 109 mg/dL (74-106); Potassium 4.6 mmol/L (3.5-5.1); Sodium 140 mmol/L (136-145); Total Protein 7.9 g/dL (6.4-8.2)
[2022-04-19 13:23] LABS: Lipase 91 U/L (73-393)
== END 2022-04-19 02:12 | disposition home or self-care (01) ==
LOC: LOS 02:11
PROVIDERS: PCP Student in an Organized Health Care Education/Training Program; Visit Provider Student in an Organized Health Care Education/Training Program
DX: D64.9 Anemia, unspecified (principal); K58.9 Irritable bowel syndrome, unspecified; Z87.19 Personal history of other diseases of the digestive system; R10.12 Left upper quadrant pain; Z91.89 Other specified personal risk factors, not elsewhere classified
CPT/HCPCS: 36415; 80053; 83690; 82728; 83540; 83550; 85025

== ENCOUNTER 2022-08-04 03:41 | Outpatient (CLI) | payer BC, SELFPAY ==
[2022-08-04 08:37] LABS: Anion Gap 4.6 mmol/L (3-11); BUN 17 mg/dL (7-18); CO2 30.4 mmol/L (21.0-32.0); CREATININE 0.9 mg/dL (0.70-1.30); Calcium 8.8 mg/dL (8.5-10.1); Chloride 107 mmol/L (98-107); Glucose 117 mg/dL (74-106); Potassium 4.1 mmol/L (3.5-5.1); Sodium 142 mmol/L (136-145); TSH (W/Ref FT4) 0.91 uIU/mL (0.36-3.74)
== END 2022-08-04 03:42 | disposition home or self-care (01) ==
PROVIDERS: PCP Student in an Organized Health Care Education/Training Program; Visit Provider Student in an Organized Health Care Education/Training Program
DX: R73.03 Prediabetes; I10 Essential (primary) hypertension; R79.89 Other specified abnormal findings of blood chemistry; G47.8 Other sleep disorders
CPT/HCPCS: 36415; 80048; 84443

== ENCOUNTER 2022-09-07 02:22 | Outpatient (CLI) | payer BC, SELFPAY ==
[2022-09-07 09:41] LABS: Abs Immature Grans 0.01 10^3/uL (0.0-0.06); Absolute Basophil Count 0.07 10^3/uL (0.0-0.2); Absolute Eosinophil Count 0.11 10^3/uL (0.0-0.7); Absolute Lymphocyte Count 1.23 10^3/uL (1.2-3.4); Absolute Monocyte Count 0.42 10^3/uL (0.1-0.8); Absolute Neutrophil Count 4.28 10^3/uL (1.2-6.7); Basophils % 1.1; Eosinophils % 1.8; HGB 13.3 g/dL (13.5-17.5); Immature Grans % 0.2; Lymphocytes % 20.1; MCH 29.4 pg (27.0-33.0); MCHC 33.3 % (32.0-36.0); MCV 89 fL (80-95); Monocytes % 6.9; Neutrophils % 69.9; Platelet Count 267 10^3/uL (130-400); RBC 4.52 10^6/uL (4.36-5.78); RDW-SD 42.5 fL; WBC 6.12 10^3/uL (4.4-10.8)
[2022-09-07 10:17] LABS: Hemoglobin A1C 5.7 % (<5.7)
[2022-09-07 10:33] LABS: Folate 16.7 ng/mL (8.6-20.0)
[2022-09-07 10:36] LABS: Calculated LDL 112 mg/dL (<100); Cholesterol 192 mg/dL (<200); HDL Cholesterol 73 mg/dL (40-60); TSH (W/Ref FT4) 1.03 uIU/mL (0.36-3.74); Triglyceride 39 mg/dL (<150); Vitamin B12 394 pg/mL (193-986)
[2022-09-07 10:53] LABS: Creatine Kinase 178 U/L (39-308)
[2022-09-07 18:11] LABS: T3,Free 4.8 pg/mL (2.8-5.3)
[2022-09-08 10:10] LABS: Lyme Ab w Rflx to Lyme Confirm Negative (Negative)
[2022-09-08 10:34] LABS: HBs Antibody, Qual Negative (See Note); HBs Antibody, Quant <3.1 mIU/mL (See Note); Hepatitis B Core Antibody Negative (Negative); Hepatitis B surface Ag Negative (Negative); Hepatitis C Ab w Rflx HCV PCR Negative (Negative)
[2022-09-10 01:33] LABS: Anaplasma phagocytophilum Negative (Negative); B. miyamotoi PCR Negative (Negative); Babesia divergens/MO-1 Negative (Negative); Babesia duncani Negative (Negative); Babesia microti Negative (Negative); Ehrlichia chaffeensis Negative (Negative); Ehrlichia ewingii/canis Negative (Negative); Ehrlichia muris eauclairensis Negative (Negative)
[2022-09-11 14:10] LABS: Testosterone, Total 461 ng/dL (240-950)
[2022-09-15 19:47] LABS: AM Cortisol 10 mcg/dL (5-25)
== END 2022-09-07 02:23 | disposition home or self-care (01) ==
PROVIDERS: PCP Student in an Organized Health Care Education/Training Program; Visit Provider Student in an Organized Health Care Education/Training Program
DX: D64.9 Anemia, unspecified (principal); R52 Pain, unspecified; W57.XXXA Bitten or stung by nonvenomous insect and other nonvenomous arthropods, initial encounter; I10 Essential (primary) hypertension; M79.10 Myalgia, unspecified site; R07.89 Other chest pain; R63.4 Abnormal weight loss; Z13.220 Encounter for screening for lipoid disorders; R73.09 Other abnormal glucose
CPT/HCPCS: 36415; 80061; 82530; 82533; 82550; 83520; 84403; 86704; 86706; 86803; 87340; 87798; 82607; 82746; 83036; 84443; 84481; 85025; 86618

== ENCOUNTER 2022-09-19 00:57 | Outpatient (CLI) | payer BC, SELFPAY ==
--- NOTE | 2022-09-19 06:28 | ETT_ITS ---
APPROVED REPORT Exam: Exercise Treadmill Patient Location: Out-Patient Room/Bed: Stress Nurse: Vaishnavi Christensen RN Ordering Provider:AZIZASHALINI MCLAUGHLIN, Contact Number: [phone] BMI: 29.70 Baseline Rhythm: Sinus Bradycardia Indications: Atypical chest pain, fatigue, hypertension, dyspnea Medical History Medical History: Atypical chest pain, prediabtetes, anemia, fatigue, HTN, HLD, bruit of R carotid art sandip Cardiac Medications: Aspirin, HCTZ, lisinopril Allergies: Escitalopram Cardiac Risk Factors: Family hx, HTN, HLD Previous Cardiac Procedures: None Pretest Chest Pain Characteristics: None Exercise History: Physically active Physical Disabilities: None Lung Sounds: Clear to auscultation, diminished throughout Heart Sounds: Regular Stress Test Details Test: Exercise stress testing was performed using a Sae protocol. Rest Stress HR Resting HR Supine: 57 bpm Max Heart Rate (APMHR): 169 bpm Resting HR Standin bpm Target HR (85% APMHR): 144 bpm Max HR Achieved: 158 bpm % of APMHR: 93 Recovery HR: 72 bpm HR response to stress: Normal HR response to stress BP Resting BP Supine: 132/82 mmHg Resting BP Standin/82 mmHg Max BP: 222/72 mmHg Recovery BP: 132/84 mmHg BP response to stress: Abnormal hypertensive response to stress. ECG Resting ECG: Sinus Bradycardia Ectopy: None Stress ECG: Sinus Tachycardia ST Change: No significant ST segment changes noted Arrhythmia: None Recovery ECG: Sinus Rhythm Recovery ST Change: No significant ST segment changes noted Recovery Arrhythmia: None Clinical Reason for Termination: Dyspnea, Fatigue, Target HR Achieved Stress Symptoms: General Fatigue, Dyspnea Exercise duration: 10 min21 sec Highest Stage Reached: Stage 4: 4.2 mph at 16% grade. Exercise capacity: 12.38 METs Angina Score: None Aguillon Treadmill Score: 9.2 Rate Pressure Product: [id number] Stress ECG Conclusion 1. Resting electrocardiogram showed voltage for left ventricular hypertrophy 2. Patient exercised on the Sae protocol and completed a workload of 12.38 METS 3. Normal heart rate response to exercise. Patient achieved 93% of predicted heart rate for age. Mi ldly hypertensive blood pressure response to exercise 4. There was no electrocardiographic evidence of myocardial ischemia 5. There were no significant dysrhythmias Aguillon Treadmill Score is 9.2 which is Low risk. Stress Test Summary STAGE Time (mins) Speed (mph) Grade (%) HR BP SpO2 SYMPTOMS METS Supine 57 132/82 98 Standing 65 128/82 99 1 3 1.7 10 94 150/72 99 4.5 2 6 2.5 12 108 166/90 98 7 3 9 3.4 14 133 210/96 98 Mild Dyspnea 10 4 12 4.2 16 156 13 1 min recovery 118 222/72 98 Mild Dyspnea 3 min recovery 71 192/80 98 Dyspnea resolving 6 min recovery 72 132/84 98 Dyspnea resolved
== END 2022-09-19 01:17 ==
LOC: DI 00:57
PROVIDERS: PCP Student in an Organized Health Care Education/Training Program; Visit Provider Student in an Organized Health Care Education/Training Program
DX: D64.9 Anemia, unspecified (principal); I10 Essential (primary) hypertension; R06.09 Other forms of dyspnea; R07.89 Other chest pain; R53.83 Other fatigue; R63.4 Abnormal weight loss
CPT/HCPCS: 93017

== ENCOUNTER 2022-10-18 02:29 | Outpatient (CLI) | payer BC, SELFPAY ==
--- NOTE | 2022-10-18 15:00 | DI.US_ITS ---
APPROVED REPORT EXAM: Comprehensive 2D, Doppler, and color-flow Echocardiogram Patient Location: Out-Patient Cloth Desizing Range Tender: Anyi Stoner RDCS (AE) Indications: Evaluate heart function, EF, Atypical chest pain, Fatigue, Anemia, HTN, SORIANO Other Information Study Quality: Adequate Conclusion Normal left ventricular wall thickness and chamber size. Ejection fraction is 60%. Wall motion is n ormal Normal right ventricular size and systolic function Both atria are normal in size There is no structural or hemodynamically significant valvular disease Right ventricular systolic pressure is 21 mmHg Wall motion Left Ventricle The left ventricle is normal size. The left ventricular systolic function is normal. The left ventric ular ejection fraction is within the normal range. There is normal left ventricular wall thickness. T here is normal LV segmental wall motion. There is no ventricular septal defect visualized. LVEF is 60 %. Right Ventricle The right ventricle is normal size. The right ventricular systolic function is normal. The RVSP is 21 .1 mmHg. Atria The left atrium size is normal. The right atrium size is normal. The interatrial septum is intact wit h no evidence for an atrial septal defect. Aortic Valve The aortic valve is normal in structure. Aortic valve is trileaflet. There is no aortic valvular sten osis. No aortic regurgitation is present. Mitral Valve The mitral valve is normal in structure. No evidence of mitral valve stenosis. Trace mitral regurgita tion. Tricuspid Valve The tricuspid valve is normal in structure. There is no tricuspid valve stenosis. Trace tricuspid reg urgitation. Pulmonic Valve The pulmonary valve is normal in structure. There is no pulmonic valvular stenosis. There is no pulmo mei valvular regurgitation. Great Vessels The aortic root is normal in size. The ascending aorta is normal in size. Aortic arch is normal in ca liber. IVC is normal in size and collapses >50% with inspiration. Pericardium There is no pericardial effusion. 2D Dimensions IVSD d PLAX 1.10 cm M: 0.6-1.2 LV Vol A2C d MOD 139.9 mL LVPW d PLAX 1.12 cm M: 0.6 - 1.2 LV Vol A4C d MOD 158.8 mL LVID d PLAX 5.32 cm M: 4.2 - 5.8 LA vol/ BSA A2C s A-L 29.1 mL/m2 LVDs 3.55 cm M: 2.5 - 4.0 LA vol/ BSA A4C s A-L 30.9 mL/m2 Ao Root d 3.53 cm M: 3.1 - 3.7 LA Vol/ BSA Biplane s A-L 31.3 mL/m2 RA Area A4C 18.25 cm2 LA Area A4C s MOD 22.60 cm2 RA Vol/ BSA A4C s A-L 24.4 mL/m2 LA Area A2C s MOD 21.00 cm2 Ao Asc Diam d 3.38 cm M: 2.6 - 3.4 LV EF A4C MOD 58.9 % LV EF Teichholz 61.0 % LV EF A2C MOD 59.1 % LVEF (Mohr's) 59.00 % M: 52 - 72 LV EF Biplane MOD 59.0 % LV Volume 108.89 mL M: 62 - 150 SV 87.97 mL LV Volume Index 50.17 mL/m2 M: 34 - 74 SV Index 40.53 mL/m2 LV Vol Biplane MOD 149.1 mL FS 32.90 % M-Mode TAPSE 2.54 cm (M/F) >1.7 LV Diastology MV E' medial 0.103 (>0.07 m/s) E/A Ratio 1.1 LV E/e MED 7.20 (<14) MV E Vmax 0.74 (0.4-1.3 m/s) MV E' lateral 0.100 (>0.1 m/s) MV A Vmax 0.70 (0.4-1.3 m/s) LV E/e LAT 7.35 (<14) MV E/A Ratio 1.00 MV E/E' medial 7.22 MV E/E' lateral 7.40 Aortic Valve LVOT Area 3.65 cm2 AoV Area Vmax 2.96 cm2 LVOT Vmax 1.17 m/s AoV Area/ BSA (Vmax) 1.37 cm2/m2 LVOT Mean Mikal. 0.75 m/s LARA Mean Mikal. 2.83 cm2 LVOT Peak Grad 5.5 mmHg LARA Mean Mikal. Index 1.31 cm2/m2 LVOT Mean Grad 2.6 mmHg LVOT VTI 0.275 m LVOT Diam s 2.15 cm AoV Vmax 1.44 m/s Velocity Ratio 0.81 AoV Mean Mikal. 0.96 m/s AoV Peak Grad 8.3 mmHg LVOT SV 100.59 mL AoV Mean Grad 4.3 mmHg AoV VTI 0.290 m AoV Area VTI 3.47 cm2 AoV Area/ BSA (VTI) 1.60 cm/m2 Mitral Valve MV DT 224 (160-240 msec) MV PHT 65 msec MV Area PHT 3.39 cm2 MV VTI 0.243 m MV Area VTI 4.13 (4.0-6.0 cm2) Pulmonary Valve PV Vmax 1.05 (0.5-1.5 m/s) RVOT Peak Gr. 1.90 mmHg PV Peak Grad 4.4 mmHg RVOT Mean Gr. 1.10 mmHg PV Mean Grad 2.2 mmHg RVOT VTI 0.152 m PV VTI 0.215 m RVOT Vmax 0.69 m/s Tricuspid Valve TR Peak Grad 18.0 mmHg TR Vmax 2.13 m/s RA Pressure 3.00 mmHg RVSP (TR) 21.1 mmHg
== END 2022-10-18 02:49 ==
LOC: DI 02:30
PROVIDERS: PCP Student in an Organized Health Care Education/Training Program; Visit Provider Student in an Organized Health Care Education/Training Program
DX: D64.9 Anemia, unspecified (principal); I10 Essential (primary) hypertension; R06.09 Other forms of dyspnea; R07.89 Other chest pain; R53.83 Other fatigue; R63.4 Abnormal weight loss
CPT/HCPCS: 93306

== ENCOUNTER 2022-11-11 12:02 | Outpatient (CLI) | payer BC, SELFPAY ==
--- NOTE | 2022-11-11 10:53 | DI.RAD_ITS ---
Exam(s) XR KNEE LT 4V AP,LAT,DIMPLE,PAT EXAM: XR KNEE LT 4V AP,LAT,DIMPLE,PAT CLINICAL HISTORY: Lt knee pain, R52, evaluate joint. TECHNIQUE: 2D digital imaging was performed. COMPARISON: No exams were available for comparison FINDINGS: Four views. No evidence of fracture or obvious joint effusion. No obvious degenerative changes. There is a lilly gn traction spur at the insertion site of the patellar tendon just below the anterior tibial tubercle . Also traction spur noted at the insertion site of the quadriceps tendon on anterior-superior garsia la. No osseous lesions. Bone density normal. Benign bone island noted in the medial femoral condyle met aphysis. IMPRESSION: As above. DATA REPOSITORY: RADIATION DOSE DELIVERED:
== END 2022-11-11 12:22 ==
PROVIDERS: PCP Student in an Organized Health Care Education/Training Program; Visit Provider Student in an Organized Health Care Education/Training Program
DX: M25.562 Pain in left knee (principal)
CPT/HCPCS: 73564

== ENCOUNTER 2022-11-30 02:02 | Outpatient (CLI) | payer BC, SELFPAY ==
--- NOTE | 2022-11-30 07:00 | DI.MRI_ITS ---
Exam(s) MR LOWER EXTREMITY LT WO EXAM: MR LOWER EXTREMITY LT WO CLINICAL HISTORY: eval thigh pain/weakness,w/ burning = neuropathy, lt thigh pain, myalgia TECHNIQUE: Multiplanar multisequence MRI was performed. COMPARISON: CR XR KNEE LT 4V AP,LAT,DIMPLE,PAT from 11/11/2022 FINDINGS: MARROW:There is no evidence of fracture, bone contusion, nor difficult osseous lesions. A small lilly gn bone island is noted in the distal medial femoral metaphysis. Bone marrow signal in the femur is unremarkable. No lytic lesions. No bone edema. No evidence of bone infarct. MUSCLES: There is atrophy of the vastus intermedius component of the quadriceps muscle group. No josé miguel dence of acute tear nor intermuscular fluid. The vastus medialis and lateralis muscles as well as th e rectus femoris components of the quadriceps group appear unremarkable.There is no signal abnormalit y in the posterior musculature. TENDONS: There is increased signal in the distal quadriceps tendon at its attachment to the superior pole the patella but without a high-grade tear at this level. PARTIALLY INCLUDED/VISUALIZED KNEE: There is a small-moderate size knee joint effusion. The patellar tendon appears intact. There is significant thinning of the retropatellar cartilage, most prominent over the lateral facet. There is subarticular signal abnormality in this region in the posterior pa tella, both edema and what are either degenerative subarticular cysts or possible osteochondral defec ts. There are no patellar retinacular tears.. No obvious collateral ligament tears. No obvious men iscal tears, realizing the limitations of knee interpretation with this larger field of view. No bon e contusion evident in the femoral condyles and tibial plateau. No obvious cruciate ligament tears. OTHER: None. IMPRESSION: 1. Realizing the limitations of this study (large field of view to include the thigh) with respect to accurately studying the knee, there are significant findings in the patellofemoral compartment with respect to cartilage thinning and degenerative cysts or possible osteochondral defects related to the retropatellar cartilage. There is also signal abnormality in the distal quadriceps tendon consisten t with an element of tendinitis (there is no high-grade tear of the quadriceps). 2. There is significant atrophy evident in one of the 4 muscles of the anterior thigh which contribut e to the formation of the quadriceps so group, this being the vastus intermedius (which is directly a nterior to the femur). 3. There is no intraosseous signal evident in the femur, femoral condyles, tibial plateau nor in the partially included fibular head. No fractures, bone contusions, bone infarcts, nor significant osseo us lesions. 4. There is a knee joint effusion (small-moderate size), without evidence of obvious meniscal tears, cruciate ligament tears, nor collateral ligament tears, realizing the limitations for interpretation of internal knee structures with this type of field of view. If clinically indicated follow-up dedicated MRI scan of the knee can be performed for added sensitivi ty and specificity. DATA REPOSITORY:
== END 2022-11-30 02:22 ==
LOC: DI 02:02
PROVIDERS: PCP Student in an Organized Health Care Education/Training Program; Visit Provider Student in an Organized Health Care Education/Training Program
DX: M62.562 Muscle wasting and atrophy, not elsewhere classified, left lower leg (principal); M25.462 Effusion, left knee; M76.52 Patellar tendinitis, left knee
CPT/HCPCS: 73718

== ENCOUNTER 2023-02-10 05:30 | Outpatient (CLI) | payer BC, SELFPAY ==
[2023-02-10] MEDS: Albuterol HFA 18 GM 200 PUFF INH IH (17:22)
[2023-02-10] MEDS: Methacholine 100 MG VIAL IH (17:22)
[2023-02-10] MEDS: Inhaler, Assist Device 1 EACH MC (17:23)
--- NOTE | 2023-02-13 16:01 | PFT_ITS ---
Date of service: 02/10/23 Time of Service: 15:05 Pulmonary Function Test Result Indications: [facility] Interpretation Spirometry: No baseline airflow limitation. There was a 15% decline in FEV1 with administration of 16mg/mL methacholine Lung Volumes: There is air trapping. Diffusion Capacity: Normal diffusion Airway Pressure: Normal airways resistance Impression Normal pulmonary function with some air trapping and a negative methacholine challenge. Clinical Correlation therefore is recommended.
== END 2023-02-10 05:31 | disposition home or self-care (01) ==
LOC: RT 05:30
PROVIDERS: PCP Student in an Organized Health Care Education/Training Program; Visit Provider Student in an Organized Health Care Education/Training Program
DX: U09.9 Post COVID-19 condition, unspecified (principal)
CPT/HCPCS: 94060; 94070; 94726; 94729; 94010; J7674

== ENCOUNTER 2023-02-17 02:03 | Outpatient (CLI) | payer BC, SELFPAY ==
[2023-02-17 11:58] LABS: HGB 12.9 g/dL (13.5-17.5)
[2023-02-17 12:14] LABS: Anion Gap 6.4 mmol/L (3-11); BUN 14 mg/dL (7-18); C-Reactive Protein 0.06 mg/dL (0.0-0.3); CO2 29.6 mmol/L (21.0-32.0); CREATININE 0.8 mg/dL (0.70-1.30); Chloride 105 mmol/L (98-107); Estimated GFR 106.48 (mL/min/1.73m2); Glucose 98 mg/dL (74-106); Potassium 3.9 mmol/L (3.5-5.1); Sodium 141 mmol/L (136-145)
== END 2023-02-17 02:04 | disposition home or self-care (01) ==
PROVIDERS: PCP Student in an Organized Health Care Education/Training Program; Visit Provider Student in an Organized Health Care Education/Training Program
DX: D64.9 Anemia, unspecified (principal); G47.9 Sleep disorder, unspecified; I10 Essential (primary) hypertension; R73.03 Prediabetes; R79.89 Other specified abnormal findings of blood chemistry; R93.89 Abnormal findings on diagnostic imaging of other specified body structures; M79.652 Pain in left thigh; R59.9 Enlarged lymph nodes, unspecified
CPT/HCPCS: 36415; 80048; 85018; 86140

== ENCOUNTER → 2023-03-07 00:20 | Outpatient (CLI) | payer BC, SELFPAY ==
--- NOTE | 2023-03-07 06:30 | DI.RAD_ITS ---
Exam(s) XR FINGER RT INDEX EXAM: XR FINGER RT INDEX CLINICAL HISTORY: evaluate DIP for joint path, MUCOIS CYST (vs wart),m67.40. TECHNIQUE: 2D digital imaging was performed. COMPARISON: No exams were available for comparison FINDINGS: 3 views There is no evidence of fracture or dislocation. With respect of the DIP joint, there are mild-moderate degenerative changes. There is also a thin ca lcific density dorsal to the neck of the middle phalanx. At the level of the proximal interphalangeal joint there are no degenerative changes nor erosions. H owever, in the subcutaneous tissue over the lateral aspect of the index finger at this level there is a visible elevated bump which measures approximately 8 x 5 mm and this contains a subcutaneous calci fication measuring 4 x 3 mm. This is superficial and not in nor intimately related to the proximal i nterphalangeal joint. The metacarpophalangeal joint of the 2nd-index finger appears unremarkable. IMPRESSION: Degenerative changes in the DIP joint-mild/moderate. Subcutaneous benign-appearing calcium containing lesion on the lateral aspect of the 2nd-index finger approximately at PIP joint level, as described above. There appears to be visible pump at this leve l and most probably this is palpable. DATA REPOSITORY: RADIATION DOSE DELIVERED:
== END ==
PROVIDERS: PCP Student in an Organized Health Care Education/Training Program; Visit Provider Student in an Organized Health Care Education/Training Program
DX: M67.441 Ganglion, right hand (principal)
CPT/HCPCS: 73140

== ENCOUNTER → 2023-03-17 00:32 | Outpatient (CLI) | payer BC, SELFPAY ==
--- NOTE | 2023-03-17 06:45 | DI.MRI_ITS ---
Exam(s) MR LOWER JOINT LT WO EXAM: MR LOWER JOINT LT WO CLINICAL HISTORY: knee joint disorder,congenital anomaly patella,injury articular cartilage,. TECHNIQUE: Multiplanar multisequence MRI was performed. COMPARISON: CR XR KNEE LT 4V AP,LAT,DIMPLE,PAT from 11/11/2022 FINDINGS: BONES: There is no fracture or contusion pattern. JOINTS: There is marked loss of the articular cartilage in the lateral patella with underlying bone m arrow edema. The articular cartilage is otherwise well maintained. There is a small amount of fluid in the joint space. TENDONS: Extensor mechanism: Unremarkable. Medial retinaculum: Unremarkable. Lateral retinaculum: Unremarkable. Popliteus: Unremarkable. MUSCLES: Unremarkable. MENISCI: The medial meniscus is unremarkable. The lateral meniscus is unremarkable. SOFT TISSUES: Unremarkable. LIGAMENTS: Anterior Cruciate: The anterior cruciate ligament is intact. Posterior Cruciate: Unremarkable. Medial Collateral:Unremarkable. Lateral Collateral: Unremarkable. OTHER: IMPRESSION: 1. Loss of the articular cartilage and subchondral edema involving the lateral patellar femoral joint . This may be due to degenerative change or trauma. 2. No evidence of a meniscal or ligament tear. DATA REPOSITORY:
== END ==
PROVIDERS: PCP Student in an Organized Health Care Education/Training Program; Visit Provider Student in an Organized Health Care Education/Training Program
DX: M22.42 Chondromalacia patellae, left knee (principal); S89.82XA Other specified injuries of left lower leg, initial encounter; X58.XXXA Exposure to other specified factors, initial encounter
CPT/HCPCS: 73721

== ENCOUNTER 2023-04-18 02:26 | Outpatient (CLI) | payer BC, SELFPAY ==
[2023-04-18 07:40] LABS: HGB 12.6 g/dL (13.5-17.5)
[2023-04-18 08:12] LABS: Iron 73 ug/dL (65-175); Total Iron Binding Capacity 284 ug/dL (250-450); Transferrin Sat 26 % (20-55)
[2023-04-18 08:29] LABS: ALT 28 U/L (16-63); AST 15 U/L (15-37); Albumin 3.7 g/dL (3.4-5.0); Alkaline Phosphatase 75 U/L (46-116); Anion Gap 3.8 mmol/L (3-11); BUN 17 mg/dL (7-18); Bilirubin, Total 0.5 mg/dL (0.2-1.0); CO2 31.2 mmol/L (21.0-32.0); CREATININE 0.9 mg/dL (0.70-1.30); Calcium 8.6 mg/dL (8.5-10.1); Chloride 107 mmol/L (98-107); Estimated GFR 102.76 (mL/min/1.73m2); Ferritin 77 ng/mL (26-388); Glucose 108 mg/dL (74-106); Potassium 3.7 mmol/L (3.5-5.1); Sodium 142 mmol/L (136-145); TSH (W/Ref FT4) 0.86 uIU/mL (0.36-3.74)
[2023-04-19 20:03] LABS: Lab Add On Test DONE
[2023-04-19 20:32] LABS: Hemoglobin A1C 5.7 % (<5.7)
== END 2023-04-18 02:27 | disposition home or self-care (01) ==
LOC: LBO 02:27
PROVIDERS: Absent Provider Student in an Organized Health Care Education/Training Program; PCP Student in an Organized Health Care Education/Training Program; Referring Provider Student in an Organized Health Care Education/Training Program; Visit Provider Student in an Organized Health Care Education/Training Program
DX: M62.81 Muscle weakness (generalized); Z91.89 Other specified personal risk factors, not elsewhere classified; I10 Essential (primary) hypertension; K58.9 Irritable bowel syndrome, unspecified; K76.9 Liver disease, unspecified; R73.03 Prediabetes; R73.09 Other abnormal glucose
CPT/HCPCS: 36415; 80053; 82306; 82728; 83036; 83540; 83550; 84443; 85018

== ENCOUNTER 2023-09-05 05:58 | Day surgery (SDC) | payer BC, SELFPAY ==
[2023-09-05] VITALS (16 sets, daily range): BP systolic 116–185; BP diastolic 57–90; PULSE 59–86; RESP 13–21; TEMP 36.2–37.1; O2SAT 95–100; BMI 31.4
[2023-09-05] MEDS: Acetaminophen 500 MG TAB 1000 MG PO ×2 (06:34→14:44)
[2023-09-05] MEDS: Celecoxib 200 MG CAP 400 MG PO (06:34)
[2023-09-05] MEDS: Gabapentin 300 MG CAP PO (06:34)
[2023-09-05] MEDS: Lactated Ringers 1,000 ML 80 ML IV (06:50)
--- NOTE | 2023-09-05 07:10 | W.PM.DSUDISC ---
Date of service: 09/05/23 Time of Service: 07:10 Discharge Plan Disposition Patient Disposition: Home Condition: Good Discharge Details Reason For Visit: L PF Replacement Attending Provider: Harvinder Macario Primary Care Provider: Aleksandra Mtz Home Meds and New Rx's Prescriptions: New celecoxib 200 mg capsule 200 mg PO BID Qty: 60 0RF aspirin 81 mg tablet,delayed release (DR/EC) 81 mg PO BID Qty: 60 0RF acetaminophen 500 mg tablet 1,000 mg PO TID Qty: 90 3RF pantoprazole 40 mg tablet,delayed release (DR/EC) 40 mg PO DAILY Qty: 30 0RF dexamethasone 4 mg tablet 4 mg PO DAILY Qty: 2 0RF oxycodone 5 mg tablet 5 mg PO Q4H MDD 6 tabs PRN (Reason: pain) Qty: 20 0RF Continued magnesium oxide 400 mg (241.3 mg magnesium) tablet 400 mg PO QHS Qty: 90 3RF albuterol sulfate [Ventolin HFA] 90 mcg/actuation HFA aerosol inhaler 2 puff inhalation Q6H PRN (Reason: shortness of breath or wheezing) Qty: 8.5 5RF loratadine [Allergy Relief (loratadine)] 10 mg tablet 10 mg PO DAILY gabapentin 300 mg capsule 300 mg PO QHS Qty: 90 3RF Rx Instructions: Continue for neuropathy lisinopril 40 mg tablet 40 mg PO .nightly Qty: 90 3RF hydrochlorothiazide 12.5 mg tablet 12.5 mg PO DAILY Qty: 90 3RF polyethylene glycol Powder miscellaneous Discontinued aspirin 81 mg tablet,chewable 81 mg PO DAILY Discharge Instructions Additional Instructions: Partial Knee Discharge Instructions Activity: The most important activity is to walk and to work on gentle motion (both flexion and extension). You should try to take short walks a few times a day. It is important that when resting you work on keeping the knee straight. Avoid putting a pillow behind the knee as this will encourage flexion. Work on range of motion exercises as provided by Physical Therapy. - Start outpatient physical therapy within 2 weeks. - You should wear the ZORAIDA hose on both legs for 2 weeks. You may remove these at night. You may also use any compression sock in place of the ZORAIDA hose. - Utilize [employer] to review exercises, see videos on exercises and obtain basic information pertaining to your surgery and your recovery. Dressing: Remove the Efren wrap by 2 days after your surgery and put on the ZORAIDA stocking given to you from the hospital. Keep the surgical dressing (underneath the EFREN wrap) in place for at least one week. After the first week it may be removed and replaced with light gauze and tape or nothing. The wound and dressing may get wet after 3 days but avoid soaking the dressing or otherwise it will need to be changed. Many people prefer covering the dressing with cling wrap (saran wrap) to minimize it from getting soaked. If it gets wet, just pat dry. If it starts to peel off then it will need to be changed. Medications: - You should take Tylenol and anti-inflammatory Celebrex as your primary pain control medications. If the Celebrex is too expensive or not covered, please call the office for another alternative (Advil/Ibuprofen or Naproxen/Aleve) - You have been prescribed a stronger pain medication Oxycodone for breakthrough pain, take as needed as prescribed. - You have also been prescribed a stomach acid reduction agent Pantoprozole to help reduce stomach acid and reflux. - You have been prescribed Gabapentin to take at night for restlessness and nerve pain. - You will be taking Aspirin 81mg twice a day for DVT prevention unless instructed otherwise. - You have also been prescribed Decadron to take to control post-operative nausea and pain. You will start this tomorrow. - If you have constipation you should take Colace or Miralax (both [id number]). It takes most people 3-4 days to have a bowel movement. Follow-up: 2 weeks If you have any acute concerns or questions, please do not hesitate to contact the office at [phone]. You may contact Dr. Macario with any questions after hours through the hospital at [phone] or on his cell phone at [phone]. Referrals: Harvinder Macario MD [ [facility] STAFF PHYSICIAN] - Equipment/Supplies: Walker Activity:: Activity as Tolerated Shower/Bathe:: 72 hours Diet:: As Tolerated Discharge Orders Discharge Orders: Discharge Order (Routine); Ordered 09/05/23 Ordered By: Delroy Simpson DS: Diagnosis Discharge Diagnosis (1) Patellofemoral arthritis of left knee: Status: Acute
[2023-09-05] MEDS: ceFAZolin 2 GM/50 ML BAG IVPB (08:00)
[2023-09-05] MEDS: TRANEXAMIC ACID/SOD. CHL. 1,000 MG/100 ML BAG 600 MG IVPB (08:10)
--- NOTE | 2023-09-05 08:18 | W.ANESPRE ---
General Info Date of Service Date Performed: 09/05/23 Height: 5 ft 11 in Weight: 102 kg Body Mass Index (BMI): 31.4 Surgical Procedure: Operation Date: 09/05/23 08:00 Proposed Procedure Side Surgeon p Knee Patellofemoral Replacement Left Harvinder Macario MD Actual Procedure Side Surgeon p Knee Patellofemoral Replacement Left Harvinder Macario MD Pre-Op Diagnosis Post-Op Diagnosis Patellofemoral chondrosis of left knee Patellofemoral chondrosis of left knee Meds Allergies and Home Medications Allergies Allergy/AdvReac Type Severity Reaction Status Date / Time escitalopram AdvReac Other (See Verified 09/05/23 06:07 Comment) Home Medication Medication Instructions Recorded magnesium oxide 400 mg (241.3 mg 400 mg PO QHS #90 tabs 04/14/22 magnesium) tablet albuterol sulfate 90 mcg/actuation 2 puff inhalation Q6H PRN 01/06/23 aerosol inhaler (Ventolin HFA) shortness of breath or wheezing #8.5 grams gabapentin 300 mg capsule 300 mg PO QHS #90 caps 02/11/23 hydrochlorothiazide 12.5 mg tablet 12.5 mg PO DAILY #90 tabs 06/29/23 lisinopril 40 mg tablet 40 mg PO .nightly #90 tabs 06/29/23 loratadine 10 mg tablet (Allergy 10 mg PO DAILY 08/17/23 Relief (loratadine)) acetaminophen 500 mg tablet 1,000 mg (2 x 500 mg) PO TID #90 09/05/23 tabs aspirin 81 mg tablet,delayed 81 mg PO BID #60 tabs 09/05/23 release celecoxib 200 mg capsule 200 mg PO BID #60 caps 09/05/23 dexamethasone 4 mg tablet 4 mg PO DAILY #2 tabs 09/05/23 oxycodone 5 mg tablet 5 mg PO Q4H PRN pain #20 tabs 09/05/23 pantoprazole 40 mg tablet,delayed 40 mg PO DAILY #30 tabs 09/05/23 release polyethylene glycol pwd miscellaneous 09/05/23 Current Visit Medications: Current Medications Generic Name Dose Route Start Last Admin Trade Name Freq PRN Reason Stop Dose Admin Acetaminophen 1,000 mg 09/05/23 06:00 09/05/23 06:34 Acetaminophen 500 Mg Tab PO 09/05/23 23:59 1,000 mg PREOP XOCHITL Administration Acetaminophen 1,000 mg 09/05/23 07:07 Acetaminophen 500 Mg Tab PO 10/05/23 07:06 TID PRN PRN Analgesia Celecoxib 400 mg 09/05/23 06:00 09/05/23 06:34 Celecoxib 200 Mg Cap PO 09/05/23 23:59 400 mg PREOP XOCHITL Administration Docusate Sodium 100 mg 09/05/23 07:07 Docusate Sodium 100 Mg Cap PO 10/05/23 07:06 BID PRN PRN Constipation Droperidol 0.625 mg 09/05/23 06:37 Droperidol 5 Mg/2 Ml Vial IVP 10/05/23 06:36 DIRECTED PRN Nausea Ephedrine Sulfate 0 mg 09/05/23 06:37 Ephedrine 25 Mg/5 Ml Syringe IVP 10/05/23 06:36 DIRECTED PRN Fentanyl 0 mcg 09/05/23 06:37 Fentanyl 100 Mcg/2 Ml Vial IVP 10/05/23 06:36 DIRECTED PRN Gabapentin 300 mg 09/05/23 06:00 09/05/23 06:34 Gabapentin 300 Mg Cap PO 09/05/23 23:59 300 mg PREOP XOCHITL Administration Hydromorphone HCl 0 mg 09/05/23 06:37 Hydromorphone 2 Mg/Ml Syr IVP 10/05/23 06:36 DIRECTED PRN Ringer's Solution 1,000 mls @ 80 mls/hr 09/05/23 06:00 09/05/23 06:50 IV 10/04/23 23:59 80 mls/hr INFUSION XOCHITL Administration Cefazolin Sodium/Dextrose 2 gm in 50 mls @ 100 mls/hr 09/05/23 06:00 Ancef Duplex IVPB 09/05/23 23:59 PREOP XOCHITL Tranexamic Acid/Sodium Chloride 1,000 mg in 100 mls @ 600 mls/hr 09/05/23 06:00 IVPB 09/05/23 23:59 PREOP XOCHITL IV Miscellaneous Supplies 1 each 09/05/23 06:00 Iv Access IV 10/04/23 23:59 DIRECTED XOCHITL Naloxone HCl 0 mg 09/05/23 06:37 Naloxone 0.4 Mg/Ml Vial IVP 10/05/23 06:36 PRN PRN Oxycodone HCl 0 mg 09/05/23 07:07 Oxycodone 5 Mg Tab PO 10/05/23 07:06 Q3H PRN PRN Pain Polyethylene Glycol 17 gm 09/05/23 07:07 Polyethylene Glycol 3350 17 Gm Packet PO 10/05/23 07:06 BID PRN PRN Constipation Sodium Chloride 0 ml 09/05/23 06:00 Normal Saline Flush 10 Ml Syr IV 10/04/23 23:59 PRN PRN Sodium Chloride 0 ml 09/05/23 06:00 Normal Saline 10 Ml Vial IJ 10/04/23 23:59 DIRECTED PRN Sterile Water 0 ml 09/05/23 06:00 Water,Injection,Sterile 10 Ml Vial IJ 10/04/23 23:59 DIRECTED PRN PFSH Active Problems Active Problems: Problem Status Onset Code Meralgia paresthetica of left side G57.12 Restless legs syndrome G25.81 Insomnia G47.00 Obstructive sleep apnea of adult G47.33 Digital mucinous cyst of finger of right hand M67.441 Patellofemoral arthritis of left knee M17.12 Generalized weakness R53.1 Paresthesia and pain of left extremity M79.609, R20.2 Carpal tunnel syndrome, bilateral G56.03 Finger pain, right M79.644 Dyspnea on exertion R06.09 Mucoid cyst of joint M67.40 DAMON (obstructive sleep apnea) G47.33 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 Abnormal MRI, musculoskeletal R93.7 Cartilage disorder M94.9 Patellofemoral chondrosis of left knee M22.42 Injury of quadriceps muscle S76.109A Muscle weakness M62.81 Knee joint disorder M25.9 Neuropathy G62.9 Left thigh pain M79.652 Lymph nodes enlarged R59.9 Activity intolerance related to fatigue R53.83 Myalgia M79.10 Arthralgia M25.50 Atypical chest pain R07.89 Fatigue R53.83 Bruit of right carotid artery R09.89 Sleep difficulties G47.9 Prediabetes R73.03 Low hemoglobin D64.9 Anemia, mild D64.9 Left upper quadrant abdominal pain R10.12 Irritable bowel syndrome K58.9 Essential hypertension I10 Dizziness R42 Unintentional weight loss R63.4 Medical History Medical History Hypertension Post covid-19 condition, unspecified COVID-like illness (2021), with post-COVID Sx .. albeit neg home testing. Asymmetrical sensorineural hearing loss COVID (~01/24/23) History of rectal bleeding Adenomatous colon polyp Diverticula of colon right sided Impairment of speech discrimination Sensorineural hearing loss, unilateral, right ear, with unrestricted hearing on the contralateral side Medical History Comments:: pt. reports difficulty voiding after two surgeries in the past and had to have a catheter Surgical History Surgical History History of colonoscopy (~10/2021) Adenomatous colon polyp, 10/2021. S/P lumbar discectomy (~2004) Hx of hemorrhoidectomy (~2011) H/O vasectomy (~2001) Tobacco Smoking/Tobacco Use Status: Never Passive smoking exposure: Yes (as child) Second hand exposure: Yes Alcohol Alcohol Intake: current Alcohol intake frequency: a few times a month Alcohol type: beer, wine and hard liquor Substance Use Substance use: Occasionally Substance use type: marijuana Details: alcohol: t-1, one drink. Marijuana: t-2: edible Vital Signs and Lab Results Vital Signs Most Recent Vital Signs in EMR: Most Recent Vital Signs Temp Pulse Resp BP Pulse Ox 36.7 C 59 L 21 147/90 H 98 09/05/23 07:17 09/05/23 07:17 09/05/23 07:17 09/05/23 07:17 09/05/23 07:17 Lab Results Blood Type / Crossmatch: No Data to Display Complete Blood Count: No Data to Display Complete Metabolic Panel: No Data to Display Liver Function Panel: No Data to Display Coagulation Panel: No Data to Display Cardiac Panel: No Data to Display Arterial Blood Gas: No Data to Display Venous Blood Gas: No Data to Display Pancreas Panel: No Data to Display Thyroid Panel: No Data to Display Infectious Disease: No Data to Display Blood Cultures: No Data to Display Toxicology Panel: No Data to Display Imaging and Studies Imaging and Studies Study information below may be from another EMR and interpreted by another provider. Please see original notes in EMR for more complete details. EKG Summary: Conclusion Sinus bradycardia...rate< 60 ST elev, probable normal early repol pattern...ST elevation, age<55. No change in T wave inversion in III. Appears most likely early repol. No STEMI. 10/30/20 Stress Test Summary: Stress ECG Conclusion 1. The patient exercised for 11 minutes and 58 seconds (13.5 METS). Exercise was stopped due to fatigue. 2. The patient's blood pressure and heart rate augmented appropriately. 3. The patient had no EKG evidence of ischemia. He did develop frequent PVCs towards the end of exercise and during recovery. Aguillon Treadmill Score is 7 which is Low risk. 11/12/20 Anesthesia Assessment and Plan Anesthesia History Personal History: No History of Anesthesia Complications Family History: No Family History of Anesthesia Complications Exercise Tolerance Exercise Tolerance: Metabolic Equivalents>4 Pertinent Negatives Pertinent Negatives: No Symptoms of GERD Cardiac & Pulmonary Exam Cardiac Exam: Normal S1/S2 Heart Sounds Pulmonary Exam: Clear Bilateral Breath Sounds Implantable Cardiac Device Does patient have a Pacemaker or an ICD?: No Airway Exam Known Difficult Airway: No Mallampati Class: 1 Mouth Opening: Normal (> 3cm) Thyromental Distance: Greater than 3 cm Neck Range of Motion: Full ROM Neck Circumference: Normal Teeth Condition: Normal Dentition ASA Classification ASA Score: ASA 2 Emergency Case?: No NPO Status NPO Status: NPO Clears >2 hours, Solids >8 hours Anesthesia Plan Resuscitation Status: Full Code Anesthesia Technique: Spinal Anesthesia Airway Planned: Natural Airway Pain Management: Surgeon and patient request nerve block Monitors Used: Standard Monitors
--- NOTE | 2023-09-05 08:21 | W.ANESNERVE ---
Nerve Block Single Injection Procedure Date and Time Date Performed: 09/05/23 Procedure Start: : Location Where Procedure Performed Procedure Location: Day Surgery Unit Reason Performed: Postoperative Analgesia Requesting Provider: Harvinder Macario Timeout Performed Timeout Performed: Yes Monitoring Used ECG, Blood Pressure, SpO2, ETCO2 and See EMR for corresponding vital signs Sterility Sterility: Hand Hygiene, Surgical Cap, Surgical Mask, Sterile Gloves, Sterile Drape/Sheet, Eye Protection and Chlorhexidine Sedation Given During Procedure Sedation Given (Indicate Dose Given): Versed IV Dose:: 2mg IVP Patient Mental Status Patient Mental Status: Sedate with meaningful communication Nerve Block 1st Nerve Block: Laterality: Left Block Type: Adductor Canal Ultrasound Image Saved?: Yes Needle / Catheter Used: 100mm SonoPlex II Local Anesthetic Bolus (Indicate Dose Given): Lidocaine used for local infiltration of skin and Ropivacaine 0.5% Dose:: 0.5%/25cc (125mg) Additives (Indicate Dose Given): Epinephrine to make 1:200,000 (5mcg/ml) Dose:: 125mcg and Decadron Dose:: PF 10mg Ultrasound: Sterile probe cover and gel used Nerve Stimulator: Not Used Paresthesia: None Procedure Tolerated: No Complications and Patient tolerated well Procedure Outcome: Successful Performed By: Ray Gibson
--- NOTE | 2023-09-05 09:03 | W.PM.OP ---
Date of service: 09/05/23 Time of Service: 08:00 Operative Note Operative Note DATE OF PROCEDURE: 09/05/23 PRE-OP DIAGNOSIS: Left Patellar Chondromalacia POST-OP DIAGNOSIS: same PROCEDURE: Left Patlleofemoral Replacement SURGEON: Harvinder Macario RN HEMODIALYSIS CHARGE: Delroy Simpson ANESTHESIA TYPE: Spinal Refer to Anesthesia Record ESTIMATED BLOOD LOSS: 25 PATHOLOGY: none sent TOURNIQUET TIME: 0 COMPLICATIONS: None Patient was transported to: PACU Patient's condition: stable Implants: 1. Arthrosurface Kahuna Trochlear Component, 8.5x5mm 2. Depuy Attune Patellar Button, 35mm Indications: Manav is a 53 year old male who has had symptoms of left patellofemoral arthritis from patellar chondromalacia. Conservative measures have been exhausted yet pain and dysfunction persisted. Please see office notes for complete details. Given the continued symptoms, I recommended a patellofemoral replacement. I reviewed the risks of the procedure to include bleeding, infection, pain, stiffness, worsening medial or lateral compartment arthritis, patellar instability, loosening, fracture, clot. Despite these risks, [patient] elected to proceed. Findings: There was notable loss of cartilage of the patella, extending down to bone. The remainder of the knee did not show any extensive cartilage wear. Procedure Description: Manav was greeted in the preoperative holding area where the correct side was identified and marked. The consent was reviewed with the patient and signed. The history and physical was updated. All questions were answered. Preoperative medications were administered: Acetaminophen 1000mg, Celebrex 400mg, and Gabapentin 300mg. An adductor canal block was then administered by the anesthesia team in the PACU. Manav was taken back to the operating room. A spinal anesthestic was then administered. The patient was placed into the supine position on the operating room table. Posts were placed for positioning during the procedure. All bony prominences were well padded. Prophylactic antibiotics in the form of Cefazolin were administered. 1g of Tranxemic Acid was given intravenously within 30 minutes of incision. The left leg was then prepped with Chloraprep and draped in a standard fashion with impervious stockinette and extremity drape. A second prep with Chloraprep was performed prior to placing Ioband. A timeout to confirm correct identity, side and site, procedure, allergies, anesthesia, and medical concerns was performed. With the knee in some flexion, a midline incision was made overlying the knee. Full thickness skin flaps were raised once the extensor mechanism was encountered. These were raised medially and laterally. Any bleeding was controlled with electrocautery. Once the extensor mechanism was fully exposed, a medial parapatellar arthrotomy was performed in a flexed position. All bleeding from the arthrotomy and the geniculate arteries was coagulated. The menisci and intrameniscal ligament was preserved. The Arthrosurface patellofemoral trial was then placed in the appropriate position and a single guidewire was placed through the center of this device. This was confirmed to be in appropriate location using the targeting arm. The trochlea was then sized in both directions corresponding to an 8.5 x 5. The initial reamer was then placed and taken down to appropriate depth. The reaming and drill guide was then placed within this recess and secured with pins. Using both the centralized reamer and the edge reamer, the trochlear recess was prepared. The guide was removed and the edges were curetted for completeness. The central hole was then prepared with a drill and a tap. The outer surface screw was then inserted to the premeasured depth. The 8.5 x 5mm patellofemoral Kahuna trochlear component by Arthrosurface was then malleted into position. The knee was held in extension and the patella was measured as 25 mm. Using the patellar clamp and cut guide, this was resected to a flat surface with at least 13mm of thickness remaining. The size 35 patella fit the best. This was oriented and then clamped into position. The lugs were drilled. High viscosity cement was prepared on the back table under vacuum preparation. When ready, cement was manually impacted into the cut surface of the patella and the patellar button was clamped into position and held. During this process attention was turned to the gutters of the knee and for all interfaces for any excess cement. While the cement was hardening, the knee was irrigated with Surgiphor betadine solution. It was allowed to sit in the knee for 3 minutes. After the cement had finally cured, approximately 15min, the clamp was removed from the patella and the knee was taken through range of motion. The capsule was then reapproximated with a No. 1 Vicryl. The second dosing of 1g TXA was started. Deep tissues were then reapproximated with 0 Vicryl and 2-0 Vicryl. The skin was closed with a running 3-0 Monocryl in a subcuticular fashion. This was reinforced with skin glue. A Mepilex silver dressing was applied along with a [id number] MARY GRACE wrap. A CryoCuff was applied. Manav was transferred to the hospital bed without difficulty an suffering no apparent complication. Manav has a good prognosis. Physical therapy will start today and without restrictions, weight-bearing as tolerated. Aspirin 81mg BID will be used for DVT prophylaxis.
[2023-09-05] MEDS: fentaNYL 100 MCG/2 ML VIAL IVP (09:56)
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
--- NOTE | 2023-09-05 13:14 | W.ANESPOSTOP ---
Postoperative Evaluation Date, Time and Location Date Performed: 09/05/23 Time Performed: 13:14 Patient Location: Day Surgery Unit Vital Signs Most Recent Imported Vital Signs: Most Recent Vital Signs Temp Pulse Resp BP Pulse Ox 36.7 C 81 14 165/88 H 98 09/05/23 12:50 09/05/23 12:50 09/05/23 12:50 09/05/23 12:50 09/05/23 12:50 Pain Score Most Recent Pain Score: Most Recent Pain Score Pain Level 3 09/05/23 12:50 Assessment Mental Status: Awake (Alert & Oriented to Patient Baseline) Airway and Respiratory Function: Patent airway with normal (patient baseline) respiratory exam Cardiovascular Function: Hemodynamically Stable Hydration Status: Adequately Hydrated Nausea & Vomiting: No Nausea or Vomiting Pain: Pain is tolerable per patient Peripheral Nerve Block: Regional nerve block not resolved at time of post operative discharge Postoperative Comments:: SAB resolved appropriately to pt sensory/motor baseline. Of note, during placement of SAB, pt c/o pain in lower back pain that resolved after pausing injection. Post-op, pt c/o rectal spasm that resolved over several hours. Sabi Gibson, ANIMAL HUSBANDRY PROFESSOR
[2023-09-05] MEDS: Tranexamic Acid 650 MG TAB 1300 MG PO (14:45)
== END 2023-09-05 15:59 | disposition home or self-care (01) ==
PROVIDERS: PCP Student in an Organized Health Care Education/Training Program; Visit Provider Student in an Organized Health Care Education/Training Program
PROC: (CPT 27437; principal; 2023-09-05 07:30)
DX: M22.42 Chondromalacia patellae, left knee (principal); I10 Essential (primary) hypertension; E78.5 Hyperlipidemia, unspecified; R73.03 Prediabetes; K58.9 Irritable bowel syndrome, unspecified
CPT/HCPCS: 27438; 76942; 97110; 97161; C1776; J0171; J0690; J1100; J2001; J2250; J2401; J2405; J2704; J3010

== ENCOUNTER 2023-09-18 14:47 | Outpatient (CLI) | payer BC, SELFPAY ==
--- NOTE | 2023-09-18 11:15 | DI.RAD_ITS ---
Exam(s) XR KNEE LT 3V AP,LAT,DIMPLE XR STANDING ALIGNMENT EXAM: XR STANDING ALIGNMENT CLINICAL HISTORY: 1ST POST OP PARTIAL KNEE REPLACEMENT. TECHNIQUE: 2D digital imaging was performed. Standing AP views were performed from the pelvis throu gh the ankles. COMPARISON: CR XR KNEE LT 4V AP,LAT,DIMPLE,PAT from 11/11/2022 FINDINGS: BONES: No acute fracture is present. No bony destructive lesion is seen. Leg length discrepancy: JOINTS: Knees: A left patellofemoral joint space prosthesis is in place. The femoral tibial joint sp aces are maintained. The ankle joints show bilateral medial downsloping. Mild joint space narrowing laterally.. The hip joints are unremarkable. SOFT TISSUE: Normal. IMPRESSION: Mild degenerative changes . Left patellofemoral prosthesis. No significant leg length discrepancy. DATA REPOSITORY: RADIATION DOSE DELIVERED:
== END 2023-09-18 14:48 | disposition home or self-care (01) ==
LOC: DIORS 14:47
PROVIDERS: PCP Student in an Organized Health Care Education/Training Program; Visit Provider Student in an Organized Health Care Education/Training Program
DX: Z96.659 Presence of unspecified artificial knee joint (principal); Z47.1 Aftercare following joint replacement surgery
CPT/HCPCS: 73562; 77073

== ENCOUNTER 2023-12-29 01:10 | Outpatient (CLI) | payer BC, SELFPAY ==
[2023-12-29 08:37] LABS: HGB 13.3 g/dL (13.5-17.5)
[2023-12-29 08:47] LABS: Hemoglobin A1C 5.7 % (<5.7)
[2023-12-29 09:14] LABS: ALT 27 U/L (16-63); AST 24 U/L (15-37); Albumin 4.2 g/dL (3.4-5.0); Alkaline Phosphatase 105 U/L (46-116); Anion Gap 6.2 mmol/L (3-11); BUN 21 mg/dL (7-18); Bilirubin, Total 0.98 mg/dL (0.2-1.0); CO2 30.8 mmol/L (21.0-32.0); CREATININE 0.9 mg/dL (0.70-1.30); Chloride 106 mmol/L (98-107); Cholesterol 192 mg/dL (<200); Estimated GFR 102.76 (mL/min/1.73m2); Glucose 107 mg/dL (74-106); HDL Cholesterol 76 mg/dL (40-60); Potassium 3.6 mmol/L (3.5-5.1); Sodium 143 mmol/L (136-145); Total Protein 7.6 g/dL (6.4-8.2)
[2023-12-29 09:17] LABS: Triglyceride <25 mg/dL (<150)
[2023-12-29 09:32] LABS: Iron 112 ug/dL (65-175); LDL CHOLESTEROL 107 mg/dL (<100); Total Iron Binding Capacity 320 ug/dL (250-450); Transferrin Sat 35 % (20-55)
== END 2023-12-29 01:11 | disposition home or self-care (01) ==
PROVIDERS: PCP Student in an Organized Health Care Education/Training Program; Visit Provider Student in an Organized Health Care Education/Training Program
DX: I10 Essential (primary) hypertension (principal); R73.03 Prediabetes; R63.4 Abnormal weight loss; E55.9 Vitamin D deficiency, unspecified; K58.9 Irritable bowel syndrome, unspecified; R79.89 Other specified abnormal findings of blood chemistry
CPT/HCPCS: 36415; 80053; 80061; 82306; 83721; 83036; 83540; 83550; 85018

== ENCOUNTER 2024-02-05 03:13 | Outpatient (CLI) | payer BC, SELFPAY ==
[2024-02-05 18:50] LABS: Vitamin D 25 Total 31.8 ng/mL (30-100)
== END 2024-02-05 03:14 | disposition home or self-care (01) ==
LOC: LBO 03:14
PROVIDERS: PCP Student in an Organized Health Care Education/Training Program; Visit Provider Student in an Organized Health Care Education/Training Program
DX: K90.9 Intestinal malabsorption, unspecified (principal)
CPT/HCPCS: 36415; 82306

== ENCOUNTER 2024-04-15 16:26 | Emergency (ER) | payer BC, SELFPAY ==
[2024-04-15 16:30] VITALS: BP 137/88; PULSE 67; RESP 20; TEMP 36.6; O2SAT 99
--- NOTE | 2024-04-15 17:10 | DI.RAD_ITS ---
Exam(s) XR FEMUR LT EXAM: XR FEMUR LT CLINICAL HISTORY: pain. TECHNIQUE: 2D digital imaging was performed. COMPARISON: CR XR STANDING ALIGNMENT from 09/18/2023 FINDINGS: Two views. No evidence of left hip nor left femur fracture. No hip joint space narrowing. Bone density normal. The patellofemoral compartment prosthesis appears stable. IMPRESSION: No acute osseous findings in the left femur. DATA REPOSITORY: RADIATION DOSE DELIVERED:
--- NOTE | 2024-04-15 17:11 | DI.RAD_ITS ---
Exam(s) XR KNEE LT 3V AP,LAT,DIMPLE EXAM: XR KNEE LT 3V AP,LAT,DIMPLE CLINICAL HISTORY: pain. TECHNIQUE: 2D digital imaging was performed. COMPARISON: X-rays 09/18/2023 FINDINGS: 3 views Stable appearance of the patello femoral prosthesis. No evidence of fracture or loosening. No evide nce of osteomyelitis. No joint effusion noted. IMPRESSION: Stable satisfactory appearance DATA REPOSITORY: RADIATION DOSE DELIVERED:
[2024-04-15 17:31] VITALS: BP 149/93; PULSE 59; RESP 18; TEMP 36.4; O2SAT 100
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
== END 2024-04-15 17:40 | disposition home or self-care (01) ==
PROVIDERS: Emergency Provider Emergency Medicine; PCP Student in an Organized Health Care Education/Training Program
DX: M79.652 Pain in left thigh (principal); I10 Essential (primary) hypertension; Z79.82 Long term (current) use of aspirin
CPT/HCPCS: 73552; 73562; 99283

== ENCOUNTER 2024-05-02 02:31 | Outpatient (CLI) | payer BC, SELFPAY ==
--- NOTE | 2024-05-02 06:30 | DI.MRI_ITS ---
Exam(s) MR LOWER EXTREMITY LT WO EXAM: MR LOWER EXTREMITY LT WO CLINICAL HISTORY: ? tear;assess hematoma;nerve Entrapment,ACUTE THIGH PAIN,H/O FALL,INJURY TECHNIQUE: Multiplanar multisequence MRI was performed. COMPARISON: CR XR FEMUR LT from 04/15/2024 FINDINGS: MARROW:There is no evidence of fracture, bone contusion, nor avascular necrosis. There are no signif icant osseous lesions. Distally there is some artifact from the patellofemoral prosthesis. MUSCLES: In the lateral aspect of the mid thigh level, there is a E septated hematoma within the vast us lateralis muscle which measures 5.3 cm craniocaudal length by 1.6 cm wide by 1.9 cm AP. There is some edema in the surrounding muscle. EXTRAMUSCULAR SOFT TISSUES: There is no signal abnormality in the overlying subcutaneous fat nor in t he subjacent vastus intermedius muscle and adjacent rectus femora is muscle. OTHER: None. IMPRESSION: 1. Findings are consistent with intramuscular hematoma secondary to tear at the mid aspect of the vas tus lateralis muscle on the outer aspect of the thigh. Measurements of the intramuscular hematoma ar e 5.3 cm craniocaudal length x 1.6 cm wide x 1.9 cm AP. There is some surrounding edema in the muscl e above in below this tear. DATA REPOSITORY:
== END 2024-05-02 02:51 ==
LOC: DI 02:31
PROVIDERS: PCP Student in an Organized Health Care Education/Training Program; Visit Provider Student in an Organized Health Care Education/Training Program
DX: S76.112A Strain of left quadriceps muscle, fascia and tendon, initial encounter; X58.XXXA Exposure to other specified factors, initial encounter
CPT/HCPCS: 73718

== ENCOUNTER 2024-07-02 02:58 | Outpatient (CLI) | payer BC, SELFPAY ==
[2024-07-02 08:48] LABS: HCT 40.2 % (40.0-50.0); MCH 29.2 pg (27.0-33.0); MCHC 32.3 % (32.0-36.0); MCV 90 fL (80-95); MPV 9.2 fL (8.0-11.0); Platelet Count 263 10^3/uL (130-400); RBC 4.45 10^6/uL (4.36-5.78); RDW 13.2 % (11.8-14.1); RDW-SD 43.2 fL; WBC 4.65 10^3/uL (4.4-10.8)
[2024-07-02 09:16] LABS: Hemoglobin A1C 5.9 % (<5.7)
[2024-07-02 09:23] LABS: Anion Gap 4.8 mmol/L (3-11); BUN 13 mg/dL (7-18); CO2 33.2 mmol/L (21.0-32.0); CREATININE 0.9 mg/dL (0.70-1.30); Calcium 9.2 mg/dL (8.5-10.1); Calculated LDL 117 mg/dL (<100); Chloride 108 mmol/L (98-107); Cholesterol 201 mg/dL (<200); Estimated GFR 102.12 (mL/min/1.73m2); Glucose 108 mg/dL (74-106); HDL Cholesterol 75 mg/dL (>or=40); Potassium 4.2 mmol/L (3.5-5.1); Sodium 146 mmol/L (136-145); TSH (W/Ref FT4) 0.75 uIU/mL (0.36-3.74); Triglyceride 49 mg/dL (<150)
== END 2024-07-02 02:59 | disposition home or self-care (01) ==
PROVIDERS: Absent Provider Nurse Practitioner Family; PCP Nurse Practitioner Family; Referring Provider Nurse Practitioner Family; Visit Provider Nurse Practitioner Family
DX: R73.03 Prediabetes (principal); R53.83 Other fatigue; Z00.00 Encounter for general adult medical examination without abnormal findings; I10 Essential (primary) hypertension; D64.9 Anemia, unspecified
CPT/HCPCS: 36415; 80048; 80061; 85027; 83036; 84443

== ENCOUNTER 2024-07-08 11:11 | Emergency (ER) | payer BC, SELFPAY ==
[2024-07-08 11:29] VITALS: BP 151/89; PULSE 56; RESP 20; TEMP 36.7; O2SAT 98
--- NOTE | 2024-07-08 11:30 | DI.RAD_ITS ---
Exam(s) XR KNEE LT 4V AP,LAT,DIMPLE,PAT EXAM: XR KNEE LT 4V AP,LAT,DIMPLE,PAT CLINICAL HISTORY: knee pain. TECHNIQUE: 2D digital imaging was performed. Five images were obtained. AP, lateral, merchant's and tunnel views were obtained. COMPARISON: CR XR KNEE LT 3V AP,LAT,DIMPLE from 04/15/2024 MR MR LOWER EXTREMITY LT WO from 05/02/2024 FINDINGS: BONES: Since the prior examination, there has been dislocation of the plate component of the distal f emoral prosthesis. No fracture or dislocation. There are enthesophytes at the anterior patella. JOINTS: There is a joint effusion present. The patella appears grossly unremarkable. SOFT TISSUE: Normal. IMPRESSION: 1. The plate component of the patellofemoral prosthesis has become removed from the screw component a nd is displaced inferiorly in the region of the interval condylar notch. 2. There is a joint effusion present. DATA REPOSITORY: RADIATION DOSE DELIVERED:
--- NOTE | 2024-07-08 13:00 | DI.CT_ITS ---
Exam(s) CT LOWER EXTREMITY LT WO EXAM: CT LOWER EXTREMITY LT WO CLINICAL HISTORY: left knee with post surgical comp. maureen extend arias. TECHNIQUE: Imaging Protocol: Axial computed tomography images with coronal and sagittal reformatted images were created and reviewed. CONTRAST MATERIAL: Intravenous: None COMPARISON: CR XR FEMUR LT from 04/15/2024 MR MR LOWER EXTREMITY LT WO from 05/02/2024 CR XR KNEE LT 4V AP,LAT,DIMPLE,PAT from 07/08/2024 FINDINGS: I note that recent MRI of 05/02/2024 revealed an ipsilateral intramuscular hematoma/tear within the v astus lateralis muscle in the outer aspect the thigh measuring 5.3 cm length by 1.6 cm wide by 1.9 cm AP OSSEOUS/ARTICULATION: There is a prominent left knee joint effusion. No evidence of acute fracture. There are minimal if any significant degenerative changes in the medial lateral compartments. There is no obvious loose intra-articular body. Tibial plateau appears intact and there are no significan t osseous findings in the femoral condyles nor within the fibular head and neck there is patellofemor al compartment prosthesis. There is resurfacing of the posterior aspect of the patella and there is prosthesis component in the central-inferior in the lower condylar notch the patella is situated abov e the femoral component of the prosthesis. This may be related to patient limb positioning. There i s prominent artifact across the superior aspect of the patellar ligament on the sagittal images, farzad ng it difficult to exclude at tear in the superior aspect of the patellar ligament. The plate component of the prosthesis appears to be associated with the screw component. These compo nents were previously on plain film images of 07/08/2024 IMPRESSION: Position of the patella relative to the femoral component appears high. Cannot exclude injury/tearin g in the superior aspect of the patellar ligament with resultant patella [place]. Previously destroying to did femoral component of the prosthesis appears intact on the present study. Large joint effusion. No radiopaque foreign body evident in the effusion and remainder of the joint space. RADIATION DOSE DELIVERED: 142.7mGy.cm Total DLP DATA REPOSITORY: All CT scans at this facility are submitted to the National Radiology Data Registry (NRDR) Dose Index Registry (DIR) with the [employer] (ACR). RADIATION OPTIMIZATION: All CT scans at this facility use at least one of these dose optimization te chniques: automated exposure control; mA and/or kV adjustment per patient size (includes targeted exa ms where dose is matched to clinical indication); or iterative reconstruction.
[2024-07-08 14:27] LABS: ESR 3 mm/hr (0-20)
[2024-07-08 14:44] LABS: C-Reactive Protein < 0.50 mg/dL (<or=0.5)
[2024-07-08 15:29] VITALS: BP 148/97; PULSE 57; RESP 16; TEMP 36.6; O2SAT 99
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
== END 2024-07-08 15:31 | disposition home or self-care (01) ==
PROVIDERS: Emergency Provider Physician Assistant; PCP Nurse Practitioner Family
DX: M96.89 Other intraoperative and postprocedural complications and disorders of the musculoskeletal system (principal); T84.093A Other mechanical complication of internal left knee prosthesis, initial encounter; M25.642 Stiffness of left hand, not elsewhere classified; I10 Essential (primary) hypertension; Z79.82 Long term (current) use of aspirin; Z96.652 Presence of left artificial knee joint
CPT/HCPCS: 85652; 99284; 73564; 73700; 86140

== ENCOUNTER 2024-07-17 11:07 | Day surgery (SDC) | payer BC, SELFPAY ==
[2024-07-17] VITALS (14 sets, daily range): BP systolic 106–151; BP diastolic 62–106; PULSE 49–64; RESP 13–17; TEMP 36.2–36.7; O2SAT 96–99; BMI 31.8
[2024-07-17] MEDS: Celecoxib 200 MG CAP 400 MG PO (11:55)
[2024-07-17] MEDS: Acetaminophen 500 MG TAB 1000 MG PO (11:55)
[2024-07-17] MEDS: Gabapentin 300 MG CAP PO (11:55)
[2024-07-17] MEDS: Lactated Ringers 1,000 ML 80 ML IV (11:56)
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
[2024-07-17] MEDS: ceFAZolin 2 GM/50 ML BAG IVPB (14:04)
[2024-07-17] MEDS: TRANEXAMIC ACID/SOD. CHL. 1,000 MG/100 ML BAG 600 MG IVPB (14:15)
--- NOTE | 2024-07-17 15:48 | W.ANESPOSTOP ---
Postoperative Evaluation Date, Time and Location Date Performed: 07/17/24 Time Performed: 15:48 Patient Location: PACU Vital Signs Most Recent Imported Vital Signs: Most Recent Vital Signs Temp Pulse Resp BP Pulse Ox 36.7 C 64 17 151/106 H 97 07/17/24 11:13 07/17/24 11:13 07/17/24 11:13 07/17/24 11:13 07/17/24 11:13 Pain Score Most Recent Pain Score: Most Recent Pain Score Pain Level 4 07/17/24 11:13 Assessment Mental Status: Awake (Alert & Oriented to Patient Baseline) Airway and Respiratory Function: Patent airway with normal (patient baseline) respiratory exam Cardiovascular Function: Hemodynamically Stable Hydration Status: Adequately Hydrated Nausea & Vomiting: No Nausea or Vomiting Pain: Pain is tolerable per patient Peripheral Nerve Block: Patient did not receive a nerve block
[2024-07-17] MEDS: HYDROmorphone 2 MG/ML SYR IVP ×3 (15:54→16:14)
--- NOTE | 2024-07-17 15:59 | W.PM.DSUDISC ---
Date of service: 07/17/24 Discharge Plan Disposition Patient Disposition: Home Condition: Good Discharge Details Reason For Visit: Revision partial TKR Attending Provider: Harvinder Macario Primary Care Provider: Cici Winn Home Meds and New Rx's Prescriptions: New celecoxib 200 mg capsule 200 mg PO BID Qty: 60 0RF aspirin 81 mg tablet,delayed release (DR/EC) 81 mg PO BID Qty: 60 0RF acetaminophen 500 mg tablet 1,000 mg PO TID Qty: 90 3RF pantoprazole 40 mg tablet,delayed release (DR/EC) 40 mg PO DAILY Qty: 30 0RF dexamethasone 4 mg tablet 4 mg PO DAILY Qty: 2 0RF oxycodone 5 mg tablet 5 mg PO Q4H MDD 6 tabs PRN (Reason: pain) Qty: 20 0RF Continued lisinopril 40 mg tablet 40 mg PO .nightly Qty: 90 3RF hydrochlorothiazide 12.5 mg tablet 12.5 mg PO DAILY Qty: 90 3RF loratadine [Claritin] 10 mg tablet 10 mg PO DAILY PRN sertraline 50 mg tablet 50 mg PO DAILY Qty: 30 2RF gabapentin 300 mg capsule 300 mg PO QHS Qty: 90 3RF Rx Instructions: Continue for neuropathy quetiapine [Seroquel] 25 mg tablet 25 mg PO BID Qty: 14 3RF polyethylene glycol Powder 1 pwd miscellaneous DAILY Discontinued aspirin 81 mg tablet,delayed release (DR/EC) 81 mg PO DAILY morphine 15 mg tablet 15 mg PO BID PRNQty: 10 0RF Discharge Instructions Additional Instructions: Total Knee Discharge Instructions Activity: The most important activity is to walk and to work on gentle motion (both flexion and extension). You should try to take short walks a few times a day. It is important that when resting you work on keeping the knee straight. Avoid putting a pillow behind the knee as this will encourage flexion. Work on range of motion exercises as provided by Physical Therapy. - Start outpatient physical therapy within 2 weeks. - You should wear the ZORAIDA hose on both legs for 2 weeks. You may remove these at night. You may also use any compression sock in place of the ZORAIDA hose. - Utilize [employer] to review exercises, see videos on exercises and obtain basic information pertaining to your surgery and your recovery. Dressing: Remove the Efren wrap by 2 days after your surgery and put on the ZORAIDA stocking given to you from the hospital. Keep the surgical dressing (underneath the EFREN wrap) in place for at least one week. After the first week it may be removed and replaced with light gauze and tape or nothing. The wound and dressing may get wet after 3 days but avoid soaking the dressing or otherwise it will need to be changed. Many people prefer covering the dressing with cling wrap (saran wrap) to minimize it from getting soaked. If it gets wet, just pat dry. If it starts to peel off then it will need to be changed. Medications: - You should take Tylenol and anti-inflammatory Celebrex as your primary pain control medications. If the Celebrex is too expensive or not covered, please call the office for another alternative (Advil/Ibuprofen or Naproxen/Aleve) - You have been prescribed a stronger pain medication Oxycodone for breakthrough pain, take as needed as prescribed. - You have also been prescribed a stomach acid reduction agent Pantoprozole to help reduce stomach acid and reflux. - You will continue your Gabapentin to take at night for restlessness and nerve pain. - You will be taking Aspirin 81mg twice a day for DVT prevention unless instructed otherwise. - You have also been prescribed Decadron to take to control post-operative nausea and pain. You will start this tomorrow. - If you have constipation you should take Colace or Miralax (both [id number]). It takes most people 3-4 days to have a bowel movement. Follow-up: 2 weeks If you have any acute concerns or questions, please do not hesitate to contact the office at [phone]. You may contact Dr. Macario with any questions after hours through the hospital at [phone] or on his cell phone at [phone]. Referrals: Harvinder Macario MD [ [facility] STAFF PHYSICIAN] - Equipment/Supplies: Walker Activity:: Activity as Tolerated Shower/Bathe:: 72 hours Diet:: As Tolerated Discharge Orders Discharge Orders: Discharge Order (Routine); Ordered 07/17/24 Ordered By: Delroy Simpson DS: Diagnosis Discharge Diagnosis (1) Mechanical loosening of internal left knee prosthetic joint: Status: Acute
[2024-07-17] MEDS: fentaNYL 100 MCG/2 ML VIAL IVP (16:18)
--- NOTE | 2024-07-17 16:49 | PT.INNT ---
PT Notes Visit Reasons: Revision partial TKR Dr. Macario gave verbal order to cancel PT eval at 4:25 PM today as patient was cleared safe to go home post-op.
--- NOTE | 2024-07-17 21:49 | ROE_ITS ---
Operative Note Operative Note PRE-OP DIAGNOSIS: Mechanical Loosening of Left Trochlaer Component POST-OP DIAGNOSIS: same PROCEDURE: Revision of Left Trochlear Component of Patlleofemoral Replacement SURGEON: Harvinder Macario PHARMACY ASSISTANT: Delroy Simpson ANESTHESIA TYPE: General LMA/ETT Refer to Anesthesia Record ESTIMATED BLOOD LOSS: 50 PATHOLOGY: none sent TOURNIQUET TIME: 0 COMPLICATIONS: None Patient was transported to: PACU Patient's condition: stable Implants: 1. Arthrosurface Cemented Peg Indications: Brennan is a 54-year-old active male who is status post patellofemoral placement of the left knee. He has been doing well. However, he had an injury a little over a week ago when he was stepping up and felt something pop in the knee with a loss of motion and difficulty with weightbearing. X-rays confirm displacement of the trochlear component. Given these findings I recommended proceeding with operative fixation in the form of a revision of the Trow component versus a total knee arthroplasty based on the status of the remainder of the knee and the host bed for the trochlear component. I reviewed the risks of the procedure to include bleeding, infection, pain, stiffness, worsening medial or lateral compartment arthritis, patellar instability, loosening, fracture, clot. Despite these risks, Manav elected to proceed. Findings: Upon opening the knee, the trigger component was resting in its correct location. However, there was no bony ingrowth to the trocar component and the screw was loose with metal debris within the screw bed. The bony bed for the trochlear component was well conforming to the trial of the trochlear implant and there was no significant arthritic change noted to the cartilage of the remainder of the knee. Therefore, proceeded with revising the trochlear implant with a cement peg inserted on the back table and the entire components cemented into the femur. Procedure Description: Manav was greeted in the preoperative holding area where the correct side was identified and marked. The consent was reviewed with the patient and signed. The history and physical was updated. All questions were answered. Preoperative mediacations were administered: Acetaminophen 1000mg, Celebrex 400mg, and Gabapentin 300mg. He was taken back to the operating room. A general anesthestic was then administered. The patient was placed into the supine position on the operating room table. Posts were placed for positioning during the procedure. All bony prominences were well padded. Prophylactic antibiotics in the form of Cefazolin were administered. 1g of Tranxemic Acid was given intravenously within 30 minutes of incision. The left leg was then prepped with Chloraprep and draped in a standard fashion with impervious stockinette and extremity drape. A second prep with Chloraprep was performed prior to placing Ioband. A timeout to confirm correct identity, side and site, procedure, allergies, anesthesia, and medical concerns was performed. With the knee in some flexion, a midline incision was made overlying the knee. Full thickness skin flaps were raised once the extensor mechanism was encountered. These were raised medially and laterally. Any bleeding was controlled with electrocautery. Once the extensor mechanism was fully exposed, a medial parapatellar arthrotomy was performed in a flexed position. All bleeding from the arthrotomy and the geniculate arteries was coagulated. The menisci and intrameniscal ligament was preserved. At this point there was a blood-tinged effusion which was evacuated. The trigger component was actually in the correct location. However, with a [place]wood is able to remove it without difficulty. The screw was noted to be somewhat loose and wobbly within his hole and there is notable metallic debris seen around it. Screw was removed out difficulty. I then inspected the remainder of the knee, visible with the current exposure down to the distal surface of the femur and the anterior surface of the tibia. There is no notable cartilage degeneration. There is no significant arthritis nor is there any significant change to the cartilage from the displacement of the trachea component that I could determine. I then placed the trial patellofemoral component into the trochlear space which had good conformity and good fit. Therefore, I decided to proceed with trochlear revision. This was done by removing any fibrous tissue that was in the bony bed of the trochlear implant. I removed the screw and all of the surrounding synovitis and metallic debris. I utilized curettes and rongeur to make sure there is no soft tissue in this region in essence to prepare a bony bed for cementing. I also used a small 1.5 [address] to place a few holes within the bony bed for cement penetration. After all this was done it was thoroughly irrigated. The trial component was placed once again and showed excellent fit and contour to the havasupai cartilage within the knee. On the back table the cement peg was impacted into the Pablo taper of the trochlear implant. A single batch of medium viscosity cement was then prepared on the back table. The bed for the trochlear implant was rinsed thoroughly. When the cement was in a doughy phase it was placed onto the bed of the trigger implant pushed into the screw hole. Cement was also placed on the backside of the trochlear implant and the PEG. The implant was then inserted and aligned with the contour of the previously cut cartilage and bone. It was held in position with manual pressure and excess cement was removed. It was held with pressure for an entire 18 minutes until the cement cured. The component was then inspected and showed no signs of loosening and showed excellent adherence to the femur with no excess cement and excellent tracking of the patella. The capsule was then reapproximated with a #2 FiberWire and no. 1 Vicryl. Deep tissues were then reapproximated with 0 Vicryl and 2-0 Vicryl. The skin was closed with a running 3-0 Monocryl in a subcuticular fashion. This was reinforced with skin glue. A Mepilex silver dressing was applied along with a [id number] MARY GRACE wrap. A CryoCuff was applied. Manav was transferred to the hospital bed without difficulty and suffering no apparent complication. Manav has a good prognosis. Aspirin 81mg BID will be used for DVT prophylaxis. Date of Procedure: 07/17/24
== END 2024-07-17 18:10 | disposition home or self-care (01) ==
PROVIDERS: PCP Nurse Practitioner Family; Visit Provider Student in an Organized Health Care Education/Training Program
PROC: (CPT 27447; principal; 2024-07-17 14:00)
DX: T84.033A Mechanical loosening of internal left knee prosthetic joint, initial encounter (principal); M25.462 Effusion, left knee; G57.12 Meralgia paresthetica, left lower limb; G47.33 Obstructive sleep apnea (adult) (pediatric); R73.03 Prediabetes; I10 Essential (primary) hypertension
CPT/HCPCS: 27486; J0690; J1100; J1171; J2003; J2250; J2405; J2704; J3010; J3475

== ENCOUNTER 2024-07-29 16:00 | Outpatient (CLI) | payer BC, SELFPAY ==
--- NOTE | 2024-07-29 14:15 | DI.RAD_ITS ---
Exam(s) XR KNEE LT 3V AP,LAT,DIMPLE EXAM: XR KNEE LT 3V AP,LAT,DIMPLE CLINICAL HISTORY: S/P REVISION. TECHNIQUE: 2D digital imaging was performed. COMPARISON: CR XR KNEE LT 4V AP,LAT,DIMPLE,PAT from 07/08/2024 FINDINGS: 3 views The components of the patello femoral prosthesis have been reattached. Again noted is evidence of patellar resurfacing. Patella appears high relative to the intercondylar notch. On the lateral view the position of the patella is 1.5 cm higher than its previous position w ith the same amount of the flexion on the lateral view. IMPRESSION: Reattached prosthesis. However, there is high position of the patella evident. DATA REPOSITORY: RADIATION DOSE DELIVERED:
== END 2024-07-29 16:01 | disposition home or self-care (01) ==
LOC: DIORS 16:00
PROVIDERS: PCP Nurse Practitioner Family; Visit Provider Student in an Organized Health Care Education/Training Program
DX: T84.033A Mechanical loosening of internal left knee prosthetic joint, initial encounter (principal)
CPT/HCPCS: 73562

== ENCOUNTER 2024-08-21 09:02 | Outpatient (CLI) | payer BC, SELFPAY ==
--- NOTE | 2024-08-21 08:15 | DI.RAD_ITS ---
Exam(s) XR KNEE LT 3V AP,LAT,DIMPLE EXAM: XR KNEE LT 3V AP,LAT,DIMPLE CLINICAL HISTORY: f/u surgery. TECHNIQUE: 2D digital imaging was performed. Three images were obtained. Merchant's, AP and lateral views were obtained. COMPARISON: CR XR KNEE LT 4V AP,LAT,DIMPLE,PAT from 07/08/2024 CR XR KNEE LT 3V AP,LAT,DIMPLE from 07/29/2024 FINDINGS: BONES: There are stable post operative changes of a patella femoral prosthesis present. No fracture or dislocation. There are enthesophytes at the anterior patella. JOINTS: The orthopedic hardware is in good position. No evidence of hardware loosening. There is a joint effusion. SOFT TISSUE: There is soft tissue swelling anterior to the patella. IMPRESSION: Stable patellofemoral prosthesis. DATA REPOSITORY: RADIATION DOSE DELIVERED:
== END 2024-08-21 09:03 | disposition home or self-care (01) ==
LOC: DIORS 09:02
PROVIDERS: PCP Nurse Practitioner Family; Visit Provider Physician Assistant
DX: T84.033A Mechanical loosening of internal left knee prosthetic joint, initial encounter (principal)
CPT/HCPCS: 73562

== ENCOUNTER 2024-09-28 16:02 | Emergency (ER) | payer BC, SELFPAY ==
[2024-09-28] VITALS (7 sets, daily range): BP systolic 137–159; BP diastolic 86–97; PULSE 58–72; RESP 9–19; TEMP 36.7; O2SAT 98–100
--- NOTE | 2024-09-28 16:00 | RT.EKG_ITS ---
APPROVED REPORT Exam: Resting ECG Reason for Exam: Dizzyiness Patient Location: E HR:67 bpm ECG Measurements Heart Rate 67 AXIS NM 177 P 60 QRSd 101 QRS 17 QT 416 T 36 QTc 438 Conclusion Sinus rhythm at a rate of 67 without acute ischemic change
--- NOTE | 2024-09-28 16:15 | DI.RAD_ITS ---
Exam(s) XR CHEST 2V PA LATERAL EXAM: XR CHEST 2V PA LATERAL CLINICAL HISTORY: dizziness. TECHNIQUE: 2D digital imaging was performed. COMPARISON: CR,XR XR CHEST 2V PA LATERAL from 10/30/2020 FINDINGS: 2 views: Heart size is normal. The mediastinum is not widened. Lungs are clear. No infiltrates nor pleural effusions. Slight loss of height of mid-lower vertebral bodies unchanged from 2020. IMPRESSION: No acute pulmonary findings. DATA REPOSITORY: RADIATION DOSE DELIVERED:
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
[2024-09-28 16:35] LABS: Abs Immature Grans 0.03 10^3/uL (0.0-0.06); Absolute Basophil Count 0.06 10^3/uL (0.0-0.2); Absolute Eosinophil Count 0.13 10^3/uL (0.0-0.7); Absolute Lymphocyte Count 2.09 10^3/uL (1.2-3.4); Absolute Monocyte Count 0.55 10^3/uL (0.1-0.8); Absolute Neutrophil Count 6.69 10^3/uL (1.2-6.7); Basophils % 0.6 %; Eosinophils % 1.4 %; HCT 40.9 % (40.0-50.0); HGB 13.8 g/dL (13.5-17.5); Immature Grans % 0.3 %; Lymphocytes % 21.9 %; MCH 29.7 pg (27.0-33.0); MCHC 33.7 % (32.0-36.0); MCV 88 fL (80-95); MPV 9.2 fL (8.0-11.0); Monocytes % 5.8 %; Platelet Count 293 10^3/uL (130-400); RBC 4.65 10^6/uL (4.36-5.78); RDW 13.1 % (11.8-14.1); RDW-SD 41.8 fL; WBC 9.55 10^3/uL (4.4-10.8)
[2024-09-28] MEDS: Meclizine 25 MG TAB PO (16:37)
[2024-09-28 17:08] LABS: ALT 24 U/L (16-63); AST 22 U/L (15-37); Albumin 4.3 g/dL (3.4-5.0); Alkaline Phosphatase 89 U/L (46-116); Anion Gap 7.8 mmol/L (3-11); BUN 18 mg/dL (7-18); Bilirubin, Total 0.5 mg/dL (0.2-1.0); CO2 29.2 mmol/L (21.0-32.0); Calcium 9.7 mg/dL (8.5-10.1); Chloride 106 mmol/L (98-107); Glucose 103 mg/dL (74-106); Magnesium 2.3 mg/dL (1.8-2.4); Potassium 3.1 mmol/L (3.5-5.1); Sodium 143 mmol/L (136-145); TSH (W/Ref FT4) 0.67 uIU/mL (0.36-3.74); Total Protein 7.9 g/dL (6.4-8.2); Troponin I 9 ng/L (<or=76)
[2024-09-28] MEDS: Potassium Bicarbonate/Cit AC 25 MEQ TABLET.EFF PO (17:34)
[2024-09-28] MEDS: LORazepam 0.5 MG TAB PO (17:35)
[2024-09-28 18:09] LABS: Bilirubin Negative (Negative); Blood Negative (Negative); Clarity Clear (Clear); Glucose Negative (Negative); Ketones Negative (Negative); Leukocyte Esterase Negative (Negative); Nitrite Negative (Negative)
[2024-09-28 18:19] LABS: Troponin I 8 ng/L (<or=76)
--- NOTE | 2024-09-28 18:30 | DI.CT_ITS ---
Exam(s) CT BRAIN NECK CTA EXAM: CT BRAIN NECK CTA CLINICAL HISTORY: dizziness, numbness to face. TECHNIQUE: Imaging Protocol: Axial CT angiography was performed with multi-slice acquisition and mu lti-planar and/or 3D reconstructions. CONTRAST MATERIAL: Intravenous: Omnipaque 350 Contrast volume:structured data in ml COMPARISON: No exams were available for comparison FINDINGS: CTA Neck W: Aortic arch anatomy: The aortic arch anatomy is conventional and there is no significant stenosis at the origin of the great vessels off of the aortic arch. No intimal flap evident. Anterior circulation: Both common carotid arteries ascend with normal luminal diameters. At the level the carotid bulbs and proximal internal carotid arteries there is minimal plaque without hemodynamically significant stenosis evident. Posterior circulation: Both vertebral arteries originate in conventional fashion off of the subclavian arteries and there is no obvious stenosis at the origin of the vertebral arteries. Both vertebral arteries exhibit normal luminal diameters within the foramen transversarium. Both vertebral arteries contribute to the formation of the basilar artery at the skull base. CTA Brain W: Anterior circulation: Both internal carotid arteries are patent in the skull base-carotid canals as well as within the cave rnous sinuses. The supraclinoid aspects of the ICAs are patent. Both A1 segments are patent as are the anterior cer ebral arteries and there is no evidence of aneurysm at the level of the anterior communicating artery . Both middle cerebral arteries are patent with no evidence of significant stenosis nor intraluminal th rombus. There also no aneurysms of these vessels. Posterior circulation: The basilar artery ascends without significant stenosis... Distally it gives off patent bilateral bermeo perior cerebellar arteries. Above this level the basilar artery terminates as patent bilateral posterior cerebral arteries. There is no evidence of aneurysm at the tip of the basilar artery nor elsewhere in the [id number] is. CT BRAIN: There is no evidence of intracranial hemorrhage, mass effect, or shift of midline structures. There are no extra-axial fluid collections. Ventricles are not enlarged or shifted. There are no ring enh ancing lesions in the brain and no abnormal meningeal enhancement. IMPRESSION: 1. Patent carotid arteries in the neck. No hemodynamically significant stenosis. No dissection 2. Patent vertebral arteries. No significant stenosis nor dissection 3. Patent intracranial arteries. Also no aneurysms. 4. No significant intracranial findings. Report called by myself to ER provider 09/28/2024 at 7:30 p.m. RADIATION DOSE DELIVERED: 2,218.98mGy.cm Total DLP DATA REPOSITORY: All CT scans at this facility are submitted to the National Radiology Data Registry (NRDR) Dose Index Registry (DIR) with the [employer] (ACR). RADIATION OPTIMIZATION: All CT scans at this facility use at least one of these dose optimization te chniques: automated exposure control; mA and/or kV adjustment per patient size (includes targeted exa ms where dose is matched to clinical indication); or iterative reconstruction.
[2024-09-28] MEDS: Omnipaque 350 MG/ML 100 ML BTL IJ (18:47)
[2024-09-28] MEDS: Acetaminophen 325 MG TAB 650 MG PO (18:47)
[2024-09-28] MEDS: Normal Saline - Diluent 50 ML VIAL IJ (18:49)
[2024-09-30 11:26] LABS: Lyme Ab w Rflx to Lyme Confirm Negative (Negative)
[2024-10-01 19:32] LABS: Anaplasma phagocytophilum Negative (Negative); B. miyamotoi PCR Negative (Negative); Babesia divergens/MO-1 Negative (Negative); Babesia duncani Negative (Negative); Babesia microti Negative (Negative); Ehrlichia chaffeensis Negative (Negative); Ehrlichia ewingii/canis Negative (Negative); Ehrlichia muris eauclairensis Negative (Negative)
== END 2024-09-28 19:55 | disposition home or self-care (01) ==
PROVIDERS: Emergency Provider Nurse Practitioner Family; PCP Nurse Practitioner Family
DX: E87.6 Hypokalemia (principal); R20.0 Anesthesia of skin; R42 Dizziness and giddiness
CPT/HCPCS: 99284; 99285; 36415; 70496; 70498; 80053; 87798; 93005; 71046; 81003; 83735; 84443; 84484; 85025; 86618; 93010; J3490

== ENCOUNTER 2024-12-27 15:09 | Outpatient (CLI) | payer BC, SELFPAY ==
[2024-12-27 21:42] LABS: PSA, Screening 0.7 ng/mL (<=3.5)
== END 2024-12-27 15:10 | disposition home or self-care (01) ==
LOC: LBO 15:09
PROVIDERS: PCP Nurse Practitioner Family; Visit Provider Nurse Practitioner Family
DX: Z12.5 Encounter for screening for malignant neoplasm of prostate (principal)
CPT/HCPCS: 36415; 84153